=== PATIENT | male | born 1955 | race Caucasian/White ===

== ENCOUNTER 2016-08-20 12:08 | Inpatient (IN) | payer OTHER ==
--- NOTE | 2016-08-20 14:16 | HP ---
Admission [facility] Chief Complaint: I am tired of using and wasting my life. Allergies/Adverse Reactions: Allergies Allergy/AdvReac Type Severity Reaction Status Date / Time chlorpromazine HCl Allergy Severe Rash Verified 08/20/16 13:54 [From Thorazine] History of Present Illness: pt is a 60yr old male with a history of cocaine dependence seeking rehab for treatment. 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.) Respiratory: reports: No Symptoms reported Cardiac: reports: No Symptoms Reported GI: reports: No Symptoms Reported : reports: No Symptoms Reported Musculoskeletal: reports: No Symptoms Reported Integumentary: reports: No Symptoms Reported Neuro: reports: No Symptoms reported Endocrine: reports: No Symptoms Reported Hematology: reports: No Symptoms Reported Psychiatric: reports: Judgement Intact, Mood/Affect Appropiate, Orientated x3, Agitated, Anxious Other Systems: Reviewed and Negative Patient History - Patient Medical History Hx Anemia: No Hx Asthma: Yes Hx Chronic Obstructive Pulmonary Disease (COPD): Yes Hx Cancer: No Hx Cardiac Disorders: Yes (pacemaker and defibrillator placed 12/2015) Hx Congestive Heart Failure: No Hx Hypertension: Yes Hx Hypercholesterolemia: Yes Hx Pacemaker: Yes HX Cerebrovascular Accident: No Hx Seizures: No Hx Dementia: No Hx Diabetes: No Hx Gastrointestinal Disorders: No Hx Liver Disease: No Hx Genitourinary Disorders: No Hx Sexually Transmitted Disorders: No Hx Renal Disease (ESRD): No Hx Thyroid Disease: No Hx Human Immunodeficiency Virus (HIV): No (negative) Hx Hepatitis C: No (negative) Hx Depression: Yes Hx Suicide Attempt: No (denies any S/H ideation) Hx Bipolar Disorder: No Hx Schizophrenia: No - Patient Surgical History Hx Cardiac Surgery: Yes (2009 defibrillator then again a pacemaker & defib 12/25 ) Hx Abdominal Surgery: Yes (B/L abdominal hernia age 4) - PPD History Previous Implant?: Yes Documented Results: Negative w/o proof PPD to be Administered?: Yes - Reproductive History Patient is a Female of Child Bearing Age (11 -55 yrs old): No - Smoking Cessation Smoking history: Current every day smoker Have you smoked in the past 12 months: Yes Aproximately how many cigarettes per day: 7 Hx Chewing Tobacco Use: No Initiated information on smoking cessation: Yes 'Breaking Loose' booklet given: 08/20/16 - Substance & Tx. History Hx Alcohol Use: No Hx Substance Use: Yes Substance Use Type: Cocaine, Heroin Hx Substance Use Treatment: Yes (07/2016 [facility] [place]) - Substances Abused Cocaine Route: Inhalation Frequency: 1-2 times per week Amount used: $100-150 Age of first use: 20 Date of Last Use: 08/19/16 Heroin Route: Inhalation Frequency: 1-3 times last 30 days Amount used: 5 bags Age of first use: 23 Date of Last Use: 08/13/16 Family Disease History - Family Disease History Family Disease History: Heart Disease: Father, Mother Admission Physical Exam [facility] - Vital Signs Vital Signs: Vital Signs - 24 hr 08/20/16 12:46 Temperature 98 F Pulse Rate 106 H Respiratory 20 Rate Blood Pressure 105/73 - Physical General Appearance: Yes: Within Normal Limits, Moderate Distress HEENTM: Yes: Hearing Decreased (left ear hearing loss d/t [facility] Respiratory: Yes: Lungs Clear, Normal Breath Sounds, No Respiratory Distress Neck: Yes: No masses,lesions,Nodules Breast: Yes: Within Normal Limits Cardiology: Yes: Regular Rate, Irregularly Irregular, Other (pt has a pacemaker and defibrillator placement since 2009 and replaced 12/2016) Abdominal: Yes: Normal Bowel Sounds Genitourinary: Yes: Within Normal Limits Back: Yes: Normal Inspection Musculoskeletal: Yes: full range of Motion Extremities: Yes: Tremors Neurological: Yes: Fully Oriented, Alert, Normal Response Integumentary: Yes: Normal Color Lymphatic: Yes: Within Normal Limits - Diagnostic (1) Cocaine dependence Current Visit: Yes Status: Chronic Qualifiers: Qualified Code(s): F14.20 - Cocaine dependence, uncomplicated (2) Heroin use disorder, mild, abuse Current Visit: Yes Status: Chronic (3) Nicotine dependence Current Visit: Yes Status: Chronic Qualifiers: Qualified Code(s): F17.210 - Nicotine dependence, cigarettes, uncomplicated (4) Left ear hearing loss Current Visit: No Status: Chronic Qualifiers: Qualified Code(s): H91.92 - Unspecified hearing loss, left ear (5) COPD (chronic obstructive pulmonary disease) Current Visit: Yes Status: Acute (6) GERD (gastroesophageal reflux disease) Current Visit: Yes Status: Chronic Qualifiers: Qualified Code(s): K21.9 - Gastro-esophageal reflux disease without esophagitis (7) Hypertension Current Visit: Yes Status: Chronic Qualifiers: Qualified Code(s): I10 - Essential (primary) hypertension (8) Neuropathy Current Visit: Yes Status: Chronic (9) Atrial fibrillation Current Visit: Yes Status: Chronic Qualifiers: Qualified Code(s): I48.91 - Unspecified atrial fibrillation Comment: has an inplant (pacemaker and defibrillator) (10) Cardiomyopathy Current Visit: Yes Status: Chronic Qualifiers: Qualified Code(s): I42.9 - Cardiomyopathy, unspecified Cleared for Admission [facility] - Detox or Rehab [facility] Level of Care: Medically Managed Claeared for Rehab Admission: Yes S Breath Alcohol Content Breath Alcohol Content: 0 Urine Drug Screen - Results Drug Screen Negative: No Urine Drug Screen Results: NOELLE-Cocaine, TCA-Tricyclic Antidepress
[2016-08-20 14:20] VITALS: BMI 25.7
[2016-08-20] MEDS ORDERED: MAGNESIUM HYDROX 2400MG/30ML ORAL SUSPENSION 30 ML CUP PO PRN (14:37)
[2016-08-20] MEDS ORDERED: diphenhydrAMINE HCL 50 MG CAPSULE PO PRN (14:37)
[2016-08-20] MEDS ORDERED: LOPERAMIDE HCL 2 MG CAPSULE PO PRN (14:37)
[2016-08-20] MEDS ORDERED: MENTHOL/PHENOL 1 EACH UD MM PRN (14:37)
[2016-08-20] MEDS ORDERED: hydrOXYzine PAMOATE 50 MG CAPSULE (FP) PO PRN (14:37)
[2016-08-20] MEDS ORDERED: guaiFENesin/D-METHORPHAN HB 10 ML UNIT-DOSE CUPS PO PRN (14:37)
[2016-08-20] MEDS ORDERED: P-EPHED 60MG/TRIPROLIDI 2.5MG TABLET PO PRN (14:37)
[2016-08-20] MEDS ORDERED: MAGNESIUM CITRATE 300 ML BOTTLE PO PRN (14:37)
[2016-08-20] MEDS ORDERED: NICOTINE POLACRILEX 4 MG GUM BC PRN (14:37)
[2016-08-20] MEDS ORDERED: FUROSEMIDE 40 MG TABLET (FP) PO PRN (14:39)
[2016-08-20 16:43] LABS: MCH 27.5 pg (25.7-33.7); MCHC 31.7 g/dl (32.0-35.9); MEAN CELL VOLUME 86.8 fl (80-96); MEAN PLT VOLUME 8.5 fl (7.5-11.1); PLATELET COUNT 304 K/MM3 (134-434); RDW 20.5 % (11.9-15.9); WHITE BLOOD COUNT 9.5 K/mm3 (4.0-10.0)
[2016-08-20 16:45] LABS: ALBUMIN 4.2 g/dl (3.4-5.0); ANION GAP 10 (8-16); CALCIUM 9.7 mg/dL (8.5-10.1); CO2 27 mmol/L (21-32); GLUCOSE,RANDOM 84 mg/dL (74-106); SGOT/AST 21 U/L (15-37)
[2016-08-20 16:48] LABS: ALK PHOS 159 U/L (45-117); BILIRUBIN,TOTAL 0.6 mg/dL (0.2-1.0); CREATININE 1.8 mg/dL (0.7-1.3); SGPT/ALT 20 U/L (12-78); TOT PROT 8.5 g/dl (6.4-8.2)
[2016-08-20 17:05] LABS: INR 1.64 (0.82-1.09); PROTHROMBIN TIME (PATIENT) 18.2 SEC (9.98-11.88)
[2016-08-20] MEDS: WARFARIN NA 3 MG TABLET PO SCH (17:57)
[2016-08-20] MEDS: THIAMINE HCL 100 MG TABLET (FP) PO SCH (21:21)
[2016-08-20] MEDS: ACETAMINOPHEN 325 MG TABLET (FP) PO PRN (21:22)
[2016-08-20 22:40] LABS: URINE APPEARANCE CLEAR; URINE BLOOD NEGATIVE (NEGATIVE); URINE COLOR AMBER; URINE GLUCOSE (UA) NEGATIVE (NEGATIVE); URINE KETONE TRACE (NEGATIVE); URINE NITRITE NEGATIVE (NEGATIVE)
[2016-08-20 22:45] LABS: URINE LEUK ESTERASE TRACE (NEGATIVE); URINE PROTEIN 1+ (NEGATIVE)
[2016-08-20 22:49] LABS: GRANULAR CASTS 10 /lpf; URINE HYALINE CAST 15 /lpf; URINE MUCUS FEW; URINE RBC 8 /hpf (0-3); URINE WBC 1 /hpf (3-5)
[2016-08-21] MEDS: MAG HYDROX/AL HYDROX/SIMETH 30 ML UNIT-DOSE CUP PO PRN ×2 (06:34→14:07)
[2016-08-21] MEDS: FUROSEMIDE 40 MG TABLET (FP) PO SCH (09:46)
[2016-08-21] MEDS: BUDESONIDE/FORMETEROL FUMARATE 160/4.5 mcg INHALER IH SCH (09:46)
[2016-08-21] MEDS: PRENATAL VITAMINS W/ FOLIC ACID TABLET (FP) PO SCH (09:46)
[2016-08-21] MEDS: LISINOPRIL 20 MG TABLET (FP) PO SCH (09:46)
[2016-08-21] MEDS: PANTOPRAZOLE 40 MG TABLET (FP) PO SCH (09:46)
[2016-08-21] MEDS: NICOTINE 21 MG/24 HOURS TOPICAL PATCH TD SCH (09:47)
[2016-08-21] MEDS: METOPROLOL SUCCINATE 200 MG TAB.SR.24H PO SCH (10:07)
--- NOTE | 2016-08-21 10:21 | HP ---
Psychiatrist Admission - Data Date of interview: 08/21/16 Admission source: [facility] Identifying data: This is the first 5n inpatient rehabilitation admission for this 60 year old single male, father of 3, residing in shared apartment, unemployed supported on food stamps. Medical History: history of A-fib, has a defibrillater 12/25, acid reflux, HTN, arthritis of both knees and COPD, smokes cigarettes 7 a day. Psychiatric History: Patient reports has been depressed all his life, his depression worsened after of his 1,5 years ago. He reports 3 psychiatric hospitalizations , two suicidal attempts (tried to hang self and planned to shot self0. His most recent psychiaric hospitalization was last mothe at [facility] for 3 weeks due to severe depression and suicidal thoughts. He currently on Trazodone 150 mg po hs, Remeron 30 mg po hs, Seroquel 300 mg po hs and Wellbutrin XL 300 mg po daily. Physical/Sexual Abuse/Trauma History: Denies history of sexual, physial and verbal abuse. Vital Signs: Vital Signs - 24 hr 08/20/16 08/21/16 08/21/16 12:46 03:30 06:41 Temperature 98 F 98.6 F Pulse Rate 106 H 101 H Respiratory 20 18 18 Rate Blood Pressure 105/73 141/93 Allergies/Adverse Reactions: Allergies Allergy/AdvReac Type Severity Reaction Status Date / Time chlorpromazine HCl Allergy Severe Rash Verified 08/20/16 13:54 [From Thorazine] Date of last physical exam: 08/20/16 Concur with the findings of this exam: Yes - Substance Abuse/Tx History Hx Alcohol Use: No Hx Substance Use: Yes Substance Use Type: Cocaine, Heroin Hx Substance Use Treatment: Yes ([place], [facility]) - Admission Criteria Previous failed treatment: Yes Poor recovery environment: Yes Comorbidities: Yes Lacks judgement: Yes Mental Status Exam - Mental Status Exam Alert and Oriented to: Time, Place, Person Cognitive Function: Grossly Intact Patient Appearance: Well Groomed Mood: Hopeful Affect: Mood Congruent Patient Behavior: Appropriate, Cooperative Speech Pattern: Clear, Appropriate Voice Loudness: Normal Thought Process: Intact, Goal Oriented Thought Disorder: Not Present Hallucinations: Denies Suicidal Ideation: Denies Homicidal Ideation: Denies Insight/Judgement: Fair Sleep: Fair Psychiatric Findings - Problem List (Adin 1, 2,3) (1) COPD (chronic obstructive pulmonary disease) Current Visit: Yes Status: Acute (2) Atrial fibrillation Current Visit: Yes Status: Chronic Qualifiers: Atrial fibrillation type: unspecified Qualified Code(s): I48.91 - Unspecified atrial fibrillation Comment: has an inplant (pacemaker and defibrillator) (3) Cardiomyopathy Current Visit: Yes Status: Chronic Qualifiers: Cardiomyopathy type: unspecified Qualified Code(s): I42.9 - Cardiomyopathy, unspecified (4) Cocaine dependence Current Visit: Yes Status: Chronic Qualifiers: Substance use status: uncomplicated Qualified Code(s): F14.20 - Cocaine dependence, uncomplicated (5) GERD (gastroesophageal reflux disease) Current Visit: Yes Status: Chronic Qualifiers: Esophagitis presence: without esophagitis Qualified Code(s): K21.9 - Gastro-esophageal reflux disease without esophagitis (6) Heroin use disorder, mild, abuse Current Visit: Yes Status: Chronic (7) Hypertension Current Visit: Yes Status: Chronic Qualifiers: Hypertension type: essential hypertension Qualified Code(s): I10 - Essential (primary) hypertension (8) Neuropathy Current Visit: Yes Status: Chronic (9) Nicotine dependence Current Visit: Yes Status: Chronic Qualifiers: Nicotine product type: cigarettes Substance use status: uncomplicated Qualified Code(s): F17.210 - Nicotine dependence, cigarettes, uncomplicated (10) MDD (major depressive disorder), recurrent episode, moderate Current Visit: Yes Status: Acute (11) Bereavement Current Visit: Yes Status: Acute - Initial Treatment Plan Initial Treatment Plan: will continue his current medications, monitor progress as needed.
[2016-08-21] MEDS: GABAPENTIN 300 MG CAPSULE (FP) PO SCH ×3 (14:06→21:42)
[2016-08-21] MEDS: SIMETHICONE 80 MG TAB.CHEW (FP) PO PRN ×2 (15:32→23:48)
[2016-08-21] MEDS: WARFARIN NA 3 MG TABLET PO SCH (17:36)
[2016-08-21] MEDS: traZODone HCL 50 MG TABLET (FP) PO SCH (21:42)
[2016-08-21] MEDS: MIRTAZAPINE 30 MG TABLET (FP) PO SCH (21:42)
[2016-08-21] MEDS: DIGOXIN 0.125 MG TABLET (FP) PO SCH (21:42)
[2016-08-21] MEDS: QUEtiapine FUMARATE 300 MG TABLET PO SCH (21:43)
[2016-08-21] MEDS: THIAMINE HCL 100 MG TABLET (FP) PO SCH (21:44)
[2016-08-21] MEDS: ACETAMINOPHEN 325 MG TABLET (FP) PO PRN (21:49)
[2016-08-22] MEDS: METOPROLOL SUCCINATE 200 MG TAB.SR.24H PO SCH (10:57)
[2016-08-22] MEDS: PRENATAL VITAMINS W/ FOLIC ACID TABLET (FP) PO SCH (10:57)
[2016-08-22] MEDS: FUROSEMIDE 40 MG TABLET (FP) PO SCH (10:58)
[2016-08-22] MEDS: GABAPENTIN 300 MG CAPSULE (FP) PO SCH ×4 (10:58→21:21)
[2016-08-22] MEDS: PANTOPRAZOLE 40 MG TABLET (FP) PO SCH (10:58)
[2016-08-22] MEDS: LISINOPRIL 20 MG TABLET (FP) PO SCH (10:58)
[2016-08-22] MEDS: BUDESONIDE/FORMETEROL FUMARATE 160/4.5 mcg INHALER IH SCH (10:59)
[2016-08-22] MEDS: NICOTINE 21 MG/24 HOURS TOPICAL PATCH TD SCH (10:59)
[2016-08-22] MEDS: WARFARIN NA 3 MG TABLET PO SCH (18:19)
[2016-08-22] MEDS: SIMETHICONE 80 MG TAB.CHEW (FP) PO PRN (18:22)
[2016-08-22] MEDS: traZODone HCL 50 MG TABLET (FP) PO SCH (21:21)
[2016-08-22] MEDS: MIRTAZAPINE 30 MG TABLET (FP) PO SCH (21:21)
[2016-08-22] MEDS: QUEtiapine FUMARATE 300 MG TABLET PO SCH (21:21)
[2016-08-22] MEDS: DIGOXIN 0.125 MG TABLET (FP) PO SCH (21:21)
[2016-08-22] MEDS: THIAMINE HCL 100 MG TABLET (FP) PO SCH (21:21)
[2016-08-22] MEDS: ACETAMINOPHEN 325 MG TABLET (FP) PO PRN (21:22)
[2016-08-23] MEDS: LISINOPRIL 20 MG TABLET (FP) PO SCH (09:38)
[2016-08-23] MEDS: GABAPENTIN 300 MG CAPSULE (FP) PO SCH ×4 (09:38→21:09)
[2016-08-23] MEDS: FUROSEMIDE 40 MG TABLET (FP) PO SCH (09:38)
[2016-08-23] MEDS: METOPROLOL SUCCINATE 200 MG TAB.SR.24H PO SCH (09:38)
[2016-08-23] MEDS: BUDESONIDE/FORMETEROL FUMARATE 160/4.5 mcg INHALER IH SCH (09:38)
[2016-08-23] MEDS: PRENATAL VITAMINS W/ FOLIC ACID TABLET (FP) PO SCH (09:38)
[2016-08-23] MEDS: PANTOPRAZOLE 40 MG TABLET (FP) PO SCH (09:39)
[2016-08-23] MEDS: NICOTINE 21 MG/24 HOURS TOPICAL PATCH TD SCH (09:40)
--- NOTE | 2016-08-23 13:28 | EKG ---
Test Reason : Blood Pressure : / mmHG Vent. Rate : 091 BPM Atrial Rate : 136 BPM P-R Int : 000 ms QRS Dur : 096 ms QT Int : 386 ms P-R-T Axes : 000 049 -21 degrees QTc Int : 474 ms ATRIAL FIBRILLATION NONSPECIFIC ST ABNORMALITY ABNORMAL QRS-T ANGLE, CONSIDER PRIMARY T WAVE ABNORMALITY ABNORMAL ECG WHEN COMPARED WITH ECG OF 15-NOV-2009 15:02, ATRIAL FIBRILLATION HAS REPLACED SINUS RHYTHM VENT. RATE HAS DECREASED BY 66 BPM CRITERIA FOR SEPTAL INFARCT ARE NO LONGER PRESENT NONSPECIFIC T WAVE ABNORMALITY, IMPROVED IN LATERAL LEADS Confirmed by ADELE RIBEIRO MD ([id number]) on 08/23/2016 1:28:32 PM Referred By: Confirmed By:ADELE RIBEIRO MD
[2016-08-23] MEDS: SIMETHICONE 80 MG TAB.CHEW (FP) PO PRN (13:48)
[2016-08-23] MEDS: WARFARIN NA 3 MG TABLET PO SCH (17:53)
[2016-08-23] MEDS: DIGOXIN 0.125 MG TABLET (FP) PO SCH (21:09)
[2016-08-23] MEDS: traZODone HCL 50 MG TABLET (FP) PO SCH (21:09)
[2016-08-23] MEDS: MIRTAZAPINE 30 MG TABLET (FP) PO SCH (21:09)
[2016-08-23] MEDS: QUEtiapine FUMARATE 300 MG TABLET PO SCH (21:10)
[2016-08-23] MEDS: THIAMINE HCL 100 MG TABLET (FP) PO SCH (21:10)
[2016-08-23] MEDS: ACETAMINOPHEN 325 MG TABLET (FP) PO PRN (21:11)
[2016-08-24] MEDS ORDERED: PT OWN MED DRAWER 7, Y5N ONE (08:29)
[2016-08-24] MEDS: GABAPENTIN 300 MG CAPSULE (FP) PO SCH ×4 (09:34→21:27)
[2016-08-24] MEDS: METOPROLOL SUCCINATE 200 MG TAB.SR.24H PO SCH (09:34)
[2016-08-24] MEDS: FUROSEMIDE 40 MG TABLET (FP) PO SCH (09:35)
[2016-08-24] MEDS: LISINOPRIL 20 MG TABLET (FP) PO SCH (09:35)
[2016-08-24] MEDS: PANTOPRAZOLE 40 MG TABLET (FP) PO SCH (09:35)
[2016-08-24] MEDS: PRENATAL VITAMINS W/ FOLIC ACID TABLET (FP) PO SCH (09:37)
[2016-08-24] MEDS: NICOTINE 21 MG/24 HOURS TOPICAL PATCH TD SCH (09:37)
[2016-08-24] MEDS: BUDESONIDE/FORMETEROL FUMARATE 160/4.5 mcg INHALER IH SCH (09:37)
--- NOTE | 2016-08-24 09:53 | PN ---
S Progress Note Note: patient did not want lasix every day ,would like to take lasix 40 mgs po twice a week,on wed and wed, vital sign monitoring
[2016-08-24] MEDS: WARFARIN NA 3 MG TABLET PO SCH (18:07)
[2016-08-24] MEDS: QUEtiapine FUMARATE 300 MG TABLET PO SCH (21:24)
[2016-08-24] MEDS: THIAMINE HCL 100 MG TABLET (FP) PO SCH (21:24)
[2016-08-24] MEDS: MIRTAZAPINE 30 MG TABLET (FP) PO SCH (21:25)
[2016-08-24] MEDS: traZODone HCL 50 MG TABLET (FP) PO SCH (21:25)
[2016-08-24] MEDS: DIGOXIN 0.125 MG TABLET (FP) PO SCH (21:27)
[2016-08-24] MEDS: ACETAMINOPHEN 325 MG TABLET (FP) PO PRN (21:28)
[2016-08-25] MEDS: NICOTINE 21 MG/24 HOURS TOPICAL PATCH TD SCH (09:29)
[2016-08-25] MEDS: PRENATAL VITAMINS W/ FOLIC ACID TABLET (FP) PO SCH (09:30)
[2016-08-25] MEDS: GABAPENTIN 300 MG CAPSULE (FP) PO SCH ×4 (09:30→21:15)
[2016-08-25] MEDS: LISINOPRIL 20 MG TABLET (FP) PO SCH (09:30)
[2016-08-25] MEDS: PANTOPRAZOLE 40 MG TABLET (FP) PO SCH (09:30)
[2016-08-25] MEDS: METOPROLOL SUCCINATE 200 MG TAB.SR.24H PO SCH (09:30)
[2016-08-25] MEDS: BUDESONIDE/FORMETEROL FUMARATE 160/4.5 mcg INHALER IH SCH (09:30)
[2016-08-25 16:31] LABS: INR 1.52 (0.82-1.09); PROTHROMBIN TIME (PATIENT) 16.9 SEC (9.98-11.88)
[2016-08-25] MEDS: WARFARIN NA 3 MG TABLET PO SCH (18:19)
[2016-08-25] MEDS: traZODone HCL 50 MG TABLET (FP) PO SCH (21:14)
[2016-08-25] MEDS: MIRTAZAPINE 30 MG TABLET (FP) PO SCH (21:14)
[2016-08-25] MEDS: QUEtiapine FUMARATE 300 MG TABLET PO SCH (21:15)
[2016-08-25] MEDS: THIAMINE HCL 100 MG TABLET (FP) PO SCH (21:15)
[2016-08-25] MEDS: DIGOXIN 0.125 MG TABLET (FP) PO SCH (21:15)
[2016-08-25] MEDS: IBUPROFEN 400 MG TABLET (FP) PO PRN (21:16)
[2016-08-26] MEDS: GABAPENTIN 300 MG CAPSULE (FP) PO SCH ×4 (09:41→22:08)
[2016-08-26] MEDS: PANTOPRAZOLE 40 MG TABLET (FP) PO SCH (09:41)
[2016-08-26] MEDS: PRENATAL VITAMINS W/ FOLIC ACID TABLET (FP) PO SCH (09:41)
[2016-08-26] MEDS: METOPROLOL SUCCINATE 200 MG TAB.SR.24H PO SCH (09:41)
[2016-08-26] MEDS: LISINOPRIL 20 MG TABLET (FP) PO SCH (09:41)
[2016-08-26] MEDS: BUDESONIDE/FORMETEROL FUMARATE 160/4.5 mcg INHALER IH SCH (09:41)
[2016-08-26] MEDS: FUROSEMIDE 40 MG TABLET (FP) PO SCH (09:43)
[2016-08-26] MEDS: NICOTINE 21 MG/24 HOURS TOPICAL PATCH TD SCH (09:43)
[2016-08-26] MEDS ORDERED: PT OWN MED DRAWER 7, Y5N ONE (16:15)
[2016-08-26] MEDS: WARFARIN NA 5 MG TABLET (UD) PO SCH (17:12)
[2016-08-26] MEDS: DIGOXIN 0.125 MG TABLET (FP) PO SCH (22:06)
[2016-08-26] MEDS: THIAMINE HCL 100 MG TABLET (FP) PO SCH (22:06)
[2016-08-26] MEDS: QUEtiapine FUMARATE 300 MG TABLET PO SCH (22:07)
[2016-08-26] MEDS: traZODone HCL 50 MG TABLET (FP) PO SCH (22:07)
[2016-08-26] MEDS: MIRTAZAPINE 30 MG TABLET (FP) PO SCH (22:08)
[2016-08-26] MEDS: IBUPROFEN 400 MG TABLET (FP) PO PRN (22:10)
[2016-08-27] MEDS: BUDESONIDE/FORMETEROL FUMARATE 160/4.5 mcg INHALER IH SCH (09:37)
[2016-08-27] MEDS: GABAPENTIN 300 MG CAPSULE (FP) PO SCH ×4 (09:37→21:14)
[2016-08-27] MEDS: PRENATAL VITAMINS W/ FOLIC ACID TABLET (FP) PO SCH (09:37)
[2016-08-27] MEDS: LISINOPRIL 20 MG TABLET (FP) PO SCH (09:37)
[2016-08-27] MEDS: PANTOPRAZOLE 40 MG TABLET (FP) PO SCH (09:37)
[2016-08-27] MEDS: METOPROLOL SUCCINATE 200 MG TAB.SR.24H PO SCH (09:37)
[2016-08-27] MEDS: NICOTINE 21 MG/24 HOURS TOPICAL PATCH TD SCH (09:38)
--- NOTE | 2016-08-27 13:19 | PN ---
[facility] Progress Note Note: Laboratory Last Values WBC 9.5 K/mm3 (4.0-10.0) 08/20/16 15:00 RBC 5.29 M/mm3 (4.00-5.60) 08/20/16 15:00 Hgb 14.5 GM/dL (11.7-16.9) 08/20/16 15:00 Hct 45.9 % (35.4-49) 08/20/16 15:00 MCV 86.8 fl (80-96) 08/20/16 15:00 MCH 27.5 pg (25.7-33.7) D 08/20/16 15:00 MCHC 31.7 g/dl (32.0-35.9) L 08/20/16 15:00 RDW 20.5 % (11.9-15.9) H D 08/20/16 15:00 Plt Count 304 K/MM3 (134-434) 08/20/16 15:00 MPV 8.5 fl (7.5-11.1) 08/20/16 15:00 INR 1.52 (0.82-1.09) H 08/25/16 10:15 Sodium 142 mmol/L (136-145) 08/20/16 15:00 Potassium 4.2 mmol/L (3.5-5.1) 08/20/16 15:00 Chloride 105 mmol/L (98-107) 08/20/16 15:00 Carbon Dioxide 27 mmol/L (21-32) 08/20/16 15:00 Anion Gap 10 (8-16) 08/20/16 15:00 BUN 29 mg/dL (7-18) H D 08/20/16 15:00 Creatinine 1.8 mg/dL (0.7-1.3) H D 08/20/16 15:00 Creat Clearance w eGFR 38.95 (>60) 08/20/16 15:00 Random Glucose 84 mg/dL (74-106) 08/20/16 15:00 Calcium 9.7 mg/dL (8.5-10.1) 08/20/16 15:00 Total Bilirubin 0.6 mg/dL (0.2-1.0) D 08/20/16 15:00 AST 21 U/L (15-37) D 08/20/16 15:00 ALT 20 U/L (12-78) D 08/20/16 15:00 Alkaline Phosphatase 159 U/L (45-117) H 08/20/16 15:00 Total Protein 8.5 g/dl (6.4-8.2) H 08/20/16 15:00 Albumin 4.2 g/dl (3.4-5.0) 08/20/16 15:00 Urine Color Maryjane 08/20/16 22:00 Urine Appearance Clear 08/20/16 22:00 Urine pH 5.0 (5.0-8.0) 08/20/16 22:00 Ur Specific Denhoff >= 1.030 (1.005-1.025) H 08/20/16 22:00 Urine Protein 1+ (NEGATIVE) H 08/20/16 22:00 Urine Glucose (UA) Negative (NEGATIVE) 08/20/16 22:00 Urine Ketones Trace (NEGATIVE) H 08/20/16 22:00 Urine Blood Negative (NEGATIVE) 08/20/16 22:00 Urine Nitrite Negative (NEGATIVE) 08/20/16 22:00 Urine Bilirubin 2.0 (NEGATIVE) 08/20/16 22:00 Urine Urobilinogen 2.0 mg/dL (0.2-1.0) 08/20/16 22:00 Ur Leukocyte Esterase Trace (NEGATIVE) H 08/20/16 22:00 Urine RBC 8 /hpf (0-3) 08/20/16 22:00 Urine WBC 1 /hpf (3-5) 08/20/16 22:00 Ur Epithelial Cells Rare /hpf (FEW) 08/20/16 22:00 Hyaline Casts 15 /lpf 08/20/16 22:00 Granular Casts 10 /lpf 08/20/16 22:00 Urine Mucus Few 08/20/16 22:00 Digoxin 0.4828 ng/ml (0.8-2.0) L 08/27/16 06:30 RPR Titer Nonreactive (NONREACTIVE) 08/20/16 15:00 on coumadin 5 mgs po daily since yesterday to repeat inr in am digoxin 0.4828 continue rehab close monitoring repeat dig level on wed08/31/16
[2016-08-27] MEDS: WARFARIN NA 5 MG TABLET (UD) PO SCH (17:35)
[2016-08-27] MEDS: ACETAMINOPHEN 325 MG TABLET (FP) PO PRN (21:12)
[2016-08-27] MEDS: traZODone HCL 50 MG TABLET (FP) PO SCH (21:13)
[2016-08-27] MEDS: THIAMINE HCL 100 MG TABLET (FP) PO SCH (21:14)
[2016-08-27] MEDS: DIGOXIN 0.125 MG TABLET (FP) PO SCH (21:14)
[2016-08-27] MEDS: QUEtiapine FUMARATE 300 MG TABLET PO SCH (21:14)
[2016-08-27] MEDS: MIRTAZAPINE 30 MG TABLET (FP) PO SCH (21:14)
[2016-08-28] MEDS: BUDESONIDE/FORMETEROL FUMARATE 160/4.5 mcg INHALER IH SCH (09:49)
[2016-08-28] MEDS: NICOTINE 21 MG/24 HOURS TOPICAL PATCH TD SCH (09:49)
[2016-08-28] MEDS: PANTOPRAZOLE 40 MG TABLET (FP) PO SCH (09:50)
[2016-08-28] MEDS: LISINOPRIL 20 MG TABLET (FP) PO SCH (09:50)
[2016-08-28] MEDS: PRENATAL VITAMINS W/ FOLIC ACID TABLET (FP) PO SCH (09:50)
[2016-08-28] MEDS: GABAPENTIN 300 MG CAPSULE (FP) PO SCH ×4 (09:50→21:29)
[2016-08-28] MEDS: METOPROLOL SUCCINATE 200 MG TAB.SR.24H PO SCH (09:51)
[2016-08-28 10:27] LABS: INR 1.79 (0.82-1.09); PROTHROMBIN TIME (PATIENT) 19.9 SEC (9.98-11.88)
[2016-08-28] MEDS: WARFARIN NA 3 MG TABLET PO SCH (17:53)
[2016-08-28] MEDS: QUEtiapine FUMARATE 300 MG TABLET PO SCH (21:29)
[2016-08-28] MEDS: THIAMINE HCL 100 MG TABLET (FP) PO SCH (21:29)
[2016-08-28] MEDS: DIGOXIN 0.125 MG TABLET (FP) PO SCH (21:29)
[2016-08-28] MEDS: traZODone HCL 50 MG TABLET (FP) PO SCH (21:29)
[2016-08-28] MEDS: MIRTAZAPINE 30 MG TABLET (FP) PO SCH (21:30)
[2016-08-28] MEDS: ACETAMINOPHEN 325 MG TABLET (FP) PO PRN (21:31)
[2016-08-29] MEDS: GABAPENTIN 300 MG CAPSULE (FP) PO SCH ×4 (09:45→21:09)
[2016-08-29] MEDS: PANTOPRAZOLE 40 MG TABLET (FP) PO SCH (09:45)
[2016-08-29] MEDS: METOPROLOL SUCCINATE 200 MG TAB.SR.24H PO SCH (09:45)
[2016-08-29] MEDS: LISINOPRIL 20 MG TABLET (FP) PO SCH (09:45)
[2016-08-29] MEDS: BUDESONIDE/FORMETEROL FUMARATE 160/4.5 mcg INHALER IH SCH (09:45)
[2016-08-29] MEDS: NICOTINE 21 MG/24 HOURS TOPICAL PATCH TD SCH (09:46)
[2016-08-29] MEDS: PRENATAL VITAMINS W/ FOLIC ACID TABLET (FP) PO SCH (09:46)
[2016-08-29 11:13] LABS: INR 2.25 (0.82-1.09); PROTHROMBIN TIME (PATIENT) 25.2 SEC (9.98-11.88)
[2016-08-29] MEDS: WARFARIN NA 3 MG TABLET PO SCH (17:31)
[2016-08-29] MEDS: MIRTAZAPINE 30 MG TABLET (FP) PO SCH (21:09)
[2016-08-29] MEDS: traZODone HCL 50 MG TABLET (FP) PO SCH (21:09)
[2016-08-29] MEDS: QUEtiapine FUMARATE 300 MG TABLET PO SCH (21:09)
[2016-08-29] MEDS: DIGOXIN 0.125 MG TABLET (FP) PO SCH (21:09)
[2016-08-29] MEDS: THIAMINE HCL 100 MG TABLET (FP) PO SCH (21:09)
[2016-08-29] MEDS: ACETAMINOPHEN 325 MG TABLET (FP) PO PRN (21:10)
[2016-08-30] MEDS: BUDESONIDE/FORMETEROL FUMARATE 160/4.5 mcg INHALER IH SCH (09:44)
[2016-08-30] MEDS: METOPROLOL SUCCINATE 200 MG TAB.SR.24H PO SCH (09:44)
[2016-08-30] MEDS: LISINOPRIL 20 MG TABLET (FP) PO SCH (09:45)
[2016-08-30] MEDS: FUROSEMIDE 40 MG TABLET (FP) PO SCH (09:45)
[2016-08-30] MEDS: NICOTINE 21 MG/24 HOURS TOPICAL PATCH TD SCH (09:45)
[2016-08-30] MEDS: PRENATAL VITAMINS W/ FOLIC ACID TABLET (FP) PO SCH (09:45)
[2016-08-30] MEDS: PANTOPRAZOLE 40 MG TABLET (FP) PO SCH (09:45)
[2016-08-30] MEDS: GABAPENTIN 300 MG CAPSULE (FP) PO SCH ×4 (09:45→21:12)
[2016-08-30] MEDS: WARFARIN NA 3 MG TABLET PO SCH (17:04)
[2016-08-30] MEDS: MIRTAZAPINE 30 MG TABLET (FP) PO SCH (21:12)
[2016-08-30] MEDS: THIAMINE HCL 100 MG TABLET (FP) PO SCH (21:12)
[2016-08-30] MEDS: DIGOXIN 0.125 MG TABLET (FP) PO SCH (21:12)
[2016-08-30] MEDS: QUEtiapine FUMARATE 300 MG TABLET PO SCH (21:12)
[2016-08-30] MEDS: traZODone HCL 50 MG TABLET (FP) PO SCH (21:12)
[2016-08-30] MEDS: ACETAMINOPHEN 325 MG TABLET (FP) PO PRN (21:13)
[2016-08-31] MEDS: METOPROLOL SUCCINATE 200 MG TAB.SR.24H PO SCH (09:42)
[2016-08-31] MEDS: NICOTINE 21 MG/24 HOURS TOPICAL PATCH TD SCH (09:42)
[2016-08-31] MEDS: BUDESONIDE/FORMETEROL FUMARATE 160/4.5 mcg INHALER IH SCH (09:42)
[2016-08-31] MEDS: LISINOPRIL 20 MG TABLET (FP) PO SCH (09:43)
[2016-08-31] MEDS: GABAPENTIN 300 MG CAPSULE (FP) PO SCH ×4 (09:43→21:08)
[2016-08-31] MEDS: PANTOPRAZOLE 40 MG TABLET (FP) PO SCH (09:43)
[2016-08-31] MEDS: PRENATAL VITAMINS W/ FOLIC ACID TABLET (FP) PO SCH (10:52)
--- NOTE | 2016-08-31 11:08 | PN ---
[facility] Progress Note Note: dig level is 0.55 .on coumadin 6 mgs po daily,inr is 2.25 on 08/29/16 patient did not want digoxin to be adjusted at this time
[2016-08-31] MEDS: WARFARIN NA 3 MG TABLET PO SCH (17:13)
[2016-08-31] MEDS: DIGOXIN 0.125 MG TABLET (FP) PO SCH (21:08)
[2016-08-31] MEDS: THIAMINE HCL 100 MG TABLET (FP) PO SCH (21:08)
[2016-08-31] MEDS: MIRTAZAPINE 30 MG TABLET (FP) PO SCH (21:08)
[2016-08-31] MEDS: traZODone HCL 50 MG TABLET (FP) PO SCH (21:08)
[2016-08-31] MEDS: QUEtiapine FUMARATE 300 MG TABLET PO SCH (21:08)
[2016-08-31] MEDS: ACETAMINOPHEN 325 MG TABLET (FP) PO PRN (21:09)
[2016-09-01 06:57] VITALS: TEMP 97.3
[2016-09-01] MEDS: NICOTINE 21 MG/24 HOURS TOPICAL PATCH TD SCH (09:48)
[2016-09-01] MEDS: PANTOPRAZOLE 40 MG TABLET (FP) PO SCH (09:48)
[2016-09-01] MEDS: LISINOPRIL 20 MG TABLET (FP) PO SCH (09:48)
[2016-09-01] MEDS: GABAPENTIN 300 MG CAPSULE (FP) PO SCH ×4 (09:48→21:10)
[2016-09-01] MEDS: METOPROLOL SUCCINATE 200 MG TAB.SR.24H PO SCH (09:48)
[2016-09-01] MEDS: PRENATAL VITAMINS W/ FOLIC ACID TABLET (FP) PO SCH (09:49)
[2016-09-01] MEDS: BUDESONIDE/FORMETEROL FUMARATE 160/4.5 mcg INHALER IH SCH (10:54)
[2016-09-01 11:08] LABS: INR 3.2 (0.82-1.09)
--- NOTE | 2016-09-01 11:48 | PN ---
S Progress Note Note: Abnormal Lab Results 09/01/16 06:30 INR 3.20 H D will give coumadin 4 mgs po daily repeat inr in am
[2016-09-01] MEDS ORDERED: WARFARIN NA 2 MG TABLET (UD) PO SCH (18:00)
[2016-09-01 20:55] VITALS: BP 164/99
[2016-09-01] MEDS: THIAMINE HCL 100 MG TABLET (FP) PO SCH (21:10)
[2016-09-01] MEDS: ACETAMINOPHEN 325 MG TABLET (FP) PO PRN (21:10)
[2016-09-01] MEDS: traZODone HCL 50 MG TABLET (FP) PO SCH (21:10)
[2016-09-01] MEDS: QUEtiapine FUMARATE 300 MG TABLET PO SCH (21:10)
[2016-09-01] MEDS: MIRTAZAPINE 30 MG TABLET (FP) PO SCH (21:10)
[2016-09-01] MEDS: DIGOXIN 0.125 MG TABLET (FP) PO SCH (21:10)
[2016-09-01 21:12] VITALS: PULSE 85
[2016-09-02] MEDS: PANTOPRAZOLE 40 MG TABLET (FP) PO SCH (09:36)
[2016-09-02] MEDS: METOPROLOL SUCCINATE 200 MG TAB.SR.24H PO SCH (09:36)
[2016-09-02] MEDS: BUDESONIDE/FORMETEROL FUMARATE 160/4.5 mcg INHALER IH SCH (09:36)
[2016-09-02] MEDS: LISINOPRIL 20 MG TABLET (FP) PO SCH (09:36)
[2016-09-02] MEDS: GABAPENTIN 300 MG CAPSULE (FP) PO SCH (09:36)
[2016-09-02] MEDS: FUROSEMIDE 40 MG TABLET (FP) PO SCH (09:37)
[2016-09-02] MEDS: PRENATAL VITAMINS W/ FOLIC ACID TABLET (FP) PO SCH (09:38)
[2016-09-02] MEDS: NICOTINE 21 MG/24 HOURS TOPICAL PATCH TD SCH (09:38)
[2016-09-02 10:40] LABS: INR 3.58 (0.82-1.09); PROTHROMBIN TIME (PATIENT) 40.4 SEC (9.98-11.88)
--- NOTE | 2016-09-02 11:01 | PN ---
Psychiatric Progress Note Vital Signs: Vital Signs Period Temp Pulse Resp BP Sys/Boyd Pulse Ox Last 24 Hr 85-85 18-18 164-164/99-99 Date of Session: 09/02/16 Chief Complaint:: discharge visit HPI: Patient has addressed cocaine, opioid, nicotine dependence comorbid MDD and Bereavement. ROS: history of A-fib, has a defibrillater 12/25, acid reflux, HTN, arthritis of both knees and COPD medically managed. Current Medications: Active Medications Generic Name Dose Route Start Last Admin Trade Name Freq PRN Reason Stop Dose Admin Acetaminophen 650 mg 08/20/16 14:37 09/01/16 21:10 Tylenol - PO 650 mg Q4H PRN Administration PAIN Al Hydroxide/Mg Hydroxide 30 ml 08/20/16 14:37 08/21/16 14:07 Mylanta Oral Suspension - PO 30 ml Q6H PRN Administration DYSPEPSIA Budesonide/Formoterol Fumarate 1 puff 08/21/16 10:00 09/02/16 09:36 Symbicort 160/4.5mcg - IH 1 puff DAILY HORTENSIA Administration Bupropion HCl 300 mg 08/22/16 10:00 09/02/16 09:36 Wellbutrin Xl - PO 300 mg DAILY HORTENSIA Administration Digoxin 0.125 mg 08/21/16 22:00 09/01/16 21:10 Lanoxin - PO 0.125 mg HS HORTENSIA Administration Diltiazem HCl 120 mg 08/21/16 22:00 09/01/16 21:10 Cardizem Cd - PO 120 mg HS HORTENSIA Administration Diphenhydramine HCl 50 mg 08/20/16 14:37 08/20/16 22:43 Benadryl - PO 50 mg HSMR1 PRN Administration INSOMNIA Eucalyptus/Menthol/Phenol/Sorbitol 1 each 08/20/16 14:37 Cepastat Lozenge - MM Q4H PRN SORE THROAT Furosemide 40 mg 08/26/16 10:00 09/02/16 09:37 Lasix - PO 40 mg SUWE@1000 HORTENSIA Administration Gabapentin 300 mg 08/21/16 14:00 09/02/16 09:36 Neurontin - PO 300 mg QID HORTENSIA Administration Guaifenesin 10 ml 08/20/16 14:37 Robitussin Dm - PO Q6H PRN COUGH Hydroxyzine Pamoate 50 mg 08/20/16 14:37 Vistaril - PO Q4H PRN AGITATION Ibuprofen 400 mg 08/20/16 14:37 08/26/16 22:10 Motrin - PO 400 mg Q6H PRN Administration SEVERE PAIN Lisinopril 20 mg 08/21/16 10:00 09/02/16 09:36 Prinivil PO 20 mg DAILY HORTENSIA Administration Loperamide HCl 4 mg 08/20/16 14:37 08/21/16 14:06 Imodium - PO 4 mg Q6H PRN Administration DIARRHEA Magnesium Citrate 300 ml 08/20/16 14:37 Citroma - PO Q48H PRN CONSTIPATION Magnesium Hydroxide 30 ml 08/20/16 14:37 Milk Of Magnesia - PO DAILY PRN CONSTIPATION Metoprolol Succinate 200 mg 08/21/16 10:00 09/02/16 09:36 Toprol Xl - PO 200 mg DAILY HORTENSIA Administration Mirtazapine 30 mg 08/21/16 22:00 09/01/16 21:10 Remeron - PO 30 mg HS HORTENSAI Administration Nicotine 21 mg 08/21/16 10:00 09/02/16 09:38 Nicoderm Patch - TD 21 mg DAILY HORTENSIA Administration Nicotine Polacrilex 4 mg 08/20/16 14:37 Nicorette Gum - BC Q2H PRN NICOTINE REPLACEMENT RX Pantoprazole Sodium 40 mg 08/21/16 10:00 09/02/16 09:36 Protonix - PO 40 mg DAILY HORTENSIA Administration Multivit/Folic Acid/Iron 1 tab 08/21/16 10:00 09/02/16 09:38 Vitamins (Sjr) - PO Not Given DAILY HORTENSIA Pseudoephedrine/Triprolidine 1 combo 08/20/16 14:37 Actifed - PO TID PRN NASAL CONGESTION Quetiapine Fumarate 300 mg 08/21/16 22:00 09/01/16 21:10 Seroquel - PO 300 mg HS HORTENSIA Administration Simethicone 80 mg 08/21/16 14:52 08/23/16 13:48 Mylicon - PO 80 mg QID PRN Administration GAS Thiamine HCl 100 mg 08/20/16 22:00 09/01/16 21:10 Vitamin B1 - PO 100 mg HS HORTENSIA Administration Trazodone HCl 150 mg 08/21/16 22:00 09/01/16 21:10 Desyrel - PO 150 mg HS HORTENSIA Administration Warfarin Sodium 4 mg 09/01/16 18:00 09/01/16 17:15 Coumadin - PO 4 mg DAILY@1800 HORTENSIA Administration Current Side Effect: No Lab tests ordered: No Lab tests reviewed: Yes Provider note:: Patient has completed today his treatment and met hisgoals, will continue to address his issues at [facility] and f/u with a psychiatrist at [facility]. Patient gained insight into his addiction and motivated to continue maintain abstinence. PAtient reports he feels much better, less depressed and more hopefull. Scripts provided for 30 days, stable for discharge today. Patient was encouraged to use altervative ways to cope with life stressors. Total face to face time:: 35 Mental Status Exam - Mental Status Exam Alert and Oriented to: Time, Place, Person Cognitive Function: Good Patient Appearance: Well Groomed Mood: Hopeful Affect: Appropriate, Mood Congruent Patient Behavior: Appropriate, Cooperative Speech Pattern: Clear, Appropriate Voice Loudness: Normal Thought Process: Intact, Goal Oriented Thought Disorder: Not Present Hallucinations: Denies Suicidal Ideation: Denies Homicidal Ideation: Denies Insight/Judgement: Fair Sleep: Fair Muscle strength/Tone: Normal Gait/Station: Normal Psychiatric Treatment Plan - Problem List (2) Atrial fibrillation Qualifiers: Atrial fibrillation type: unspecified Qualified Code(s): I48.91 - Unspecified atrial fibrillation Comment: has an inplant (pacemaker and defibrillator) (3) Cardiomyopathy Qualifiers: Cardiomyopathy type: unspecified Qualified Code(s): I42.9 - Cardiomyopathy, unspecified (4) Cocaine dependence Qualifiers: Substance use status: uncomplicated Qualified Code(s): F14.20 - Cocaine dependence, uncomplicated (5) GERD (gastroesophageal reflux disease) Qualifiers: Esophagitis presence: without esophagitis Qualified Code(s): K21.9 - Gastro-esophageal reflux disease without esophagitis (7) Hypertension Qualifiers: Hypertension type: essential hypertension Qualified Code(s): I10 - Essential (primary) hypertension (9) Nicotine dependence Qualifiers: Nicotine product type: cigarettes Substance use status: uncomplicated Qualified Code(s): F17.210 - Nicotine dependence, cigarettes, uncomplicated
== END 2016-09-02 12:15 | disposition home or self-care (01) | DRG 772 ==
LOC: YASAS 12:08 → Y5N 14:44
PROVIDERS: ADMIT Psychiatry & Neurology Psychiatry; ATTEND Psychiatry & Neurology Psychiatry
PROC: HZ42ZZZ Group Counseling for Substance Abuse Treatment, Cognitive-Behavioral (ICD-10-PCS; principal; 2016-08-20)
DX: F14.20 Cocaine dependence, uncomplicated (principal); F11.10 Opioid abuse, uncomplicated; F17.210 Nicotine dependence, cigarettes, uncomplicated; F33.2 Major depressive disorder, recurrent severe without psychotic features; J45.909 Unspecified asthma, uncomplicated; J44.9 Chronic obstructive pulmonary disease, unspecified; I48.91 Unspecified atrial fibrillation; I10 Essential (primary) hypertension; I42.9 Cardiomyopathy, unspecified; K21.9 Gastro-esophageal reflux disease without esophagitis; G62.9 Polyneuropathy, unspecified; H91.92 Unspecified hearing loss, left ear; Z79.01 Long term (current) use of anticoagulants; Z63.4 Disappearance and death of family member; Z95.810 Presence of automatic (implantable) cardiac defibrillator
CPT/HCPCS: 36415; 80053; 80162; 81003; 81015; 85027; 85610; 86593; 93005; 93010

== ENCOUNTER 2018-04-20 13:21 | Inpatient (IN) | payer OTHER ==
[2018-04-20 15:04] VITALS: BMI 26.8
--- NOTE | 2018-04-20 18:47 | HP ---
COWS - Scale Resting Pulse: 1= [place] 81-100 Sweatin=Flushed/Facial Moisture Restless Observation: 1= Difficult to Sit Still Pupil Size: 2= Moderately Dilated Bone or Joint Aches: 2= Severe Diffuse Aches Runny Nose/ Eye Tearin= Runny Nose/Eyes GI Upset > 30mins: 2= Nausea/Diarrhea Tremor Observation: 0= None Yawning Observation: 0= None Anxiety or Irritability: 2=Irritable/Anxious Goose Flesh Skin: 0=Smooth Skin COWS Score: 14 CIWA Score - Admission Criteria [facility] Guidelines: Admission for Medically Managed Detox: Requires at least one of the followin. CIWA greater than 12 2. Seizures within the past 24 hours 3. Delirium tremens within the past 24 hours 4. Hallucinations within the past 24 hours 5. Acute intervention needed for co occurring medical disorder 6. Acute intervention needed for co occurring psychiatric disorder 7. Severe withdrawal that cannot be handled at a lower level of care (continued vomiting, continued diarrhea, abnormal vital signs) requiring intravenous medication and/or fluids 8. Admission [facility] Chief Complaint: HEROIN WITHDRAWAL SX. Allergies/Adverse Reactions: Allergies Allergy/AdvReac Type Severity Reaction Status Date / Time chlorpromazine HCl Allergy Severe Rash Verified 08/20/16 13:54 [From Thorazine] History of Present Illness: PATIENT PRESENTS WITH HEROIN WITHDRAWAL SX. PATIENT HAS HX OF DETOX HERE AT [facility] IN 2017. PATIENT STARTED SNIFFING HEROIN AT AGE 22. PATIENT SNIFFS 6-7 BAGS DAILY, LAST TIME HE USED WAS YESTERDAY. PATIENT DENIES IVDA. PATEINT DENIES HX OF SEIZURES, +H/O OVERDOSE LAST YEAR. +BLACKOUTS. UDS +OPI/MTD. + TOBACCO USE 10 CIG/DAY X 40 YEARS. PMH INCLUDES AFIB, INTERNAL DEFIBRILLATOR ( CHANGED IN 2016), COPD, RHEUMATOID ARTHRITIS, HTN, DEPRESSION AND ANXIETY. DENIES SI/HI AND SUICIDE ATTEMPTS. Exam Limitations: No Limitations - Ebola screening Have you traveled outside of the country in the last 21 days: No Have you had contact with anyone from an Ebola affected area: No Have you been sick,other than usual withdrawal symptoms: No Do you have a fever: No - Review of Systems Constitutional: Chills, Night Sweats, Changes in sleep EENT: reports: Tearing, Nose Congestion Respiratory: reports: Cough (NON-PRODUCTIVE) Cardiac: reports: Irregular Heart Rate GI: reports: Diarrhea, Nausea, Poor Fluid Intake, Abdominal cramping : reports: No Symptoms Reported Musculoskeletal: reports: Back Pain, Joint Pain, Muscle Pain Integumentary: reports: Flushing, Lumps (ON ARMS DUE TO R.A.), Sweating Neuro: reports: Numbness, Tingling, Tremors Endocrine: reports: No Symptoms Reported, Flushing Hematology: reports: No Symptoms Reported Psychiatric: reports: Orientated x3, Anxious, Depressed Patient History - Patient Medical History Hx Anemia: No Hx Asthma: Yes Hx Chronic Obstructive Pulmonary Disease (COPD): Yes Hx Cancer: No Hx Cardiac Disorders: Yes (pacemaker and defibrillator placed 12/2015) Hx Congestive Heart Failure: No Hx Hypertension: Yes Hx Hypercholesterolemia: Yes Hx Pacemaker: Yes HX Cerebrovascular Accident: No Hx Seizures: No Hx Dementia: No Hx Diabetes: No Hx Gastrointestinal Disorders: No Hx Liver Disease: No Hx Genitourinary Disorders: No Hx Sexually Transmitted Disorders: No Hx Renal Disease (ESRD): No Hx Thyroid Disease: No Hx Human Immunodeficiency Virus (HIV): No (negative, denies testing) Hx Hepatitis C: No (negative) Hx Depression: Yes Hx Suicide Attempt: No (denies any S/H ideation) Hx Bipolar Disorder: No Hx Schizophrenia: No - Patient Surgical History Past Surgical History: Yes Hx Neurologic Surgery: No Hx Cataract Extraction: No Hx Cardiac Surgery: Yes (2009 defibrillator then again a pacemaker & defib 12/25 ) Hx Lung Surgery: No Hx Breast Surgery: No Hx Breast Biopsy: No Hx Abdominal Surgery: Yes (B/L abdominal hernia age 4) Hx Appendectomy: No Hx Cholecystectomy: No Hx Genitourinary Surgery: No Hx Orthopedic Surgery: No Other Surgical History: bilateral inguinal hernia repair at age 4 Anesthesia Reaction: No - PPD History Previous Implant?: Yes Documented Results: Negative w/proof Date: 08/22/16 PPD to be Administered?: Yes - Smoking Cessation Smoking history: Current every day smoker Have you smoked in the past 12 months: Yes Aproximately how many cigarettes per day: 10 Hx Chewing Tobacco Use: No Initiated information on smoking cessation: Yes 'Breaking Loose' booklet given: 04/20/18 - Substance & Tx. History Hx Alcohol Use: No Hx Substance Use: Yes Substance Use Type: Heroin Hx Substance Use Treatment: Yes - Substances Abused Heroin Route: Inhalation Frequency: Daily Amount used: 7 bags Age of first use: 20 Date of Last Use: 04/19/18 Family Disease History - Family Disease History Family Disease History: Heart Disease: Father, Mother Admission Physical Exam S - Vital Signs Vital Signs: Vital Signs - 24 hr 04/20/18 15:02 Temperature 97.9 F Pulse Rate 91 H Respiratory 20 Rate Blood Pressure 139/93 - Physical General Appearance: Yes: Disheveled, Tremorous, Sweating, Anxious HEENTM: Yes: EOMI, Hearing grossly Normal, Normocephalic, Normal Voice, MATT, Pharynx Normal, Nasal Congestion Respiratory: Yes: Chest Non-Tender, No Respiratory Distress, No Accessory Muscle Use, Rhonchi (clears with coughing) Neck: Yes: No masses,lesions,Nodules, Supple, Trachea in good position Breast: Yes: Breast Exam Deferred Cardiology: Yes: Regular Rhythm, Regular Rate, S1, S2 Abdominal: Yes: Normal Bowel Sounds, Non Tender, Soft Genitourinary: Yes: Within Normal Limits Back: Yes: Muscle Spasm Musculoskeletal: Yes: full range of Motion, Gait Steady, Back pain, Joint Stiffness, Muscle Pain, Other Extremities: Yes: Normal Range of Motion, Non-Tender, Tremors, Other (lumps on forearms due to RA) 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 intact, Fully Oriented, Alert, Motor Strength 5/5, Normal Response, Numbness, Depressed Affect Integumentary: Yes: Normal Color, Warm, Other (flushing, lesions and scabs on forearms) Lymphatic: Yes: Within Normal Limits - Diagnostic (1) Opioid dependence with withdrawal Current Visit: Yes Status: Acute (2) COPD (chronic obstructive pulmonary disease) Current Visit: Yes Status: Chronic Qualifiers: Chronic bronchitis type: unspecified (3) MDD (major depressive disorder), recurrent episode, moderate Current Visit: Yes Status: Chronic (4) Atrial fibrillation Current Visit: Yes Status: Chronic Qualifiers: Atrial fibrillation type: unspecified Qualified Code(s): I48.91 - Unspecified atrial fibrillation Comment: has an inplant (pacemaker and defibrillator) (5) Cardiomyopathy Current Visit: Yes Status: Chronic Qualifiers: Cardiomyopathy type: unspecified Qualified Code(s): I42.9 - Cardiomyopathy , unspecified (6) Cocaine dependence Current Visit: Yes Status: Chronic Qualifiers: Substance use status: uncomplicated Qualified Code(s): F14.20 - Cocaine dependence, uncomplicated (7) GERD (gastroesophageal reflux disease) Current Visit: Yes Status: Chronic Qualifiers: Esophagitis presence: without esophagitis Qualified Code(s): K21.9 - Gastro -esophageal reflux disease without esophagitis (8) Hypertension Current Visit: Yes Status: Chronic Qualifiers: Hypertension type: essential hypertension Qualified Code(s): I10 - Essential (primary) hypertension (9) Neuropathy Current Visit: Yes Status: Chronic (10) Nicotine dependence Current Visit: Yes Status: Chronic Qualifiers: Nicotine product type: cigarettes Substance use status: uncomplicated Qualified Code(s): F17.210 - Nicotine dependence, cigarettes, uncomplicated Cleared for Admission [facility] - Detox or Rehab [facility] Level of Care: Medically Managed Detox Regimen/Protocol: Methadone S Breath Alcohol Content Breath Alcohol Content: 0 Urine Drug Screen - Results Drug Screen Negative: No Urine Drug Screen Results: OPI-Opiates, MTD-Methadone Inpatient Rehab Admission - Rehab Decision to Admit Inpatient rehab admission?: No
[2018-04-20] MEDS ORDERED: NICOTINE POLACRILEX 2 MG GUM BUC PRN (19:03)
[2018-04-20] MEDS ORDERED: MENTHOL/PHENOL 1 EACH UD MM PRN (19:03)
[2018-04-20] MEDS ORDERED: MAGNESIUM CITRATE 300 ML BOTTLE PO PRN (19:03)
[2018-04-20] MEDS ORDERED: MAGNESIUM HYDROX 2400MG/30ML ORAL SUSPENSION 30 ML CUP PO PRN (19:03)
[2018-04-20] MEDS ORDERED: BISMUTH SUBSALICYLATE 524 MG/30 ML UD PO PRN (19:03)
[2018-04-20] MEDS ORDERED: MAG HYDROX/AL HYDROX/SIMETH 30 ML UNIT-DOSE CUP PO PRN (19:03)
[2018-04-20] MEDS ORDERED: MELATONIN 5 MG TABLETS PO PRN (19:03)
[2018-04-20] MEDS ORDERED: IBUPROFEN 400 MG TABLET (FP) PO PRN (19:03)
[2018-04-20] MEDS ORDERED: cloNIDine HCL 0.1 MG TABLET PO PRN (19:05)
[2018-04-20] MEDS ORDERED: METHADONE HCL 10 MG TABLET (FOR DETOX USE ONLY) PO ONE ×2 (21:00→23:00)
[2018-04-20] MEDS ORDERED: DILTIAZEM HCL 300 MG PO SCH (22:00)
[2018-04-20] MEDS ORDERED: WARFARIN NA 2 MG TABLET (UD) PO SCH (22:00)
[2018-04-20] MEDS: GABAPENTIN 300 MG CAPSULE (FP) PO SCH (22:13)
[2018-04-20] MEDS: THIAMINE HCL 100 MG TABLET (FP) PO SCH (22:13)
[2018-04-20] MEDS: BUDESONIDE/FORMETEROL FUMARATE 160/4.5 mcg INHALER IH SCH (22:14)
[2018-04-20] MEDS: DIGOXIN 0.125 MG TABLET (FP) PO SCH (23:11)
[2018-04-20] MEDS: WARFARIN NA 5 MG TABLET (UD) PO SCH (23:13)
[2018-04-20] MEDS ORDERED: QUEtiapine FUMARATE 100 MG TABLET (FP) PO ONE (23:56)
[2018-04-21] MEDS: ACETAMINOPHEN 325 MG TABLET (FP) PO PRN ×2 (00:17→22:03)
[2018-04-21] MEDS: GABAPENTIN 300 MG CAPSULE (FP) PO SCH ×3 (05:24→22:04)
[2018-04-21] MEDS ORDERED: METHADONE HCL 5 MG TABLET (FOR DETOX USE ONLY) PO ONE (10:00)
[2018-04-21] MEDS ORDERED: PRENATAL VITAMINS W/ FOLIC ACID TABLET (FP) PO SCH (10:00)
[2018-04-21] MEDS ORDERED: METHOTREXATE 2.5 MG TABLET PO SCH (10:00)
[2018-04-21 10:24] LABS: HEMATOCRIT 32.2 % (35.4-49); HEMOGLOBIN 10.5 GM/dL (11.7-16.9); MCH 27.5 pg (25.7-33.7); MCHC 32.5 g/dl (32.0-35.9); MEAN CELL VOLUME 84.8 fl (80-96); PLATELET COUNT 271 K/MM3 (134-434); RDW 24.3 % (11.9-15.9); WHITE BLOOD COUNT 10.5 K/mm3 (4.0-10.0)
[2018-04-21] MEDS: LISINOPRIL 20 MG TABLET (FP) PO SCH (10:25)
[2018-04-21] MEDS: PANTOPRAZOLE 40 MG TABLET (FP) PO SCH (10:25)
[2018-04-21 10:26] LABS: INR 3.42 (0.83-1.09); PROTHROMBIN TIME (PATIENT) 40.9 SEC (9.7-13.0)
[2018-04-21] MEDS: NICOTINE 14 MG/24 HOURS TOPICAL PATCH TD SCH (10:26)
[2018-04-21] MEDS: BUDESONIDE/FORMETEROL FUMARATE 160/4.5 mcg INHALER IH SCH ×2 (10:26→22:02)
[2018-04-21] MEDS: predniSONE 10 MG TABLET (UD) PO SCH (10:28)
--- NOTE | 2018-04-21 10:55 | EKG ---
Test Reason : Blood Pressure : / mmHG Vent. Rate : 091 BPM Atrial Rate : 107 BPM P-R Int : 000 ms QRS Dur : 086 ms QT Int : 316 ms P-R-T Axes : 000 -29 044 degrees QTc Int : 388 ms POOR DATA QUALITY, INTERPRETATION MAY BE ADVERSELY AFFECTED ATRIAL FIBRILLATION NONSPECIFIC ST AND T WAVE ABNORMALITY ABNORMAL ECG WHEN COMPARED WITH ECG OF 20-AUG-2016 18:04, QRS AXIS SHIFTED LEFT QT HAS SHORTENED Confirmed by ROCÍO CORONADO, ANA ([id number]) on 04/21/2018 10:55:05 AM Referred By: Confirmed By:ANA ALFORD MD
[2018-04-21] MEDS: TIOTROPIUM BROMIDE 2.5 MCG (SPIRIVA) RESPIMAT INHALER IH SCH (11:17)
[2018-04-21 11:27] LABS: ALBUMIN 2.9 g/dl (3.4-5.0); ALK PHOS 138 U/L (45-117); ANION GAP 6 MMOL/L (8-16); BILIRUBIN,TOTAL 0.3 mg/dL (0.2-1); BLOOD UREA NITROGEN 16 mg/dL (7-18); CALCIUM 7.9 mg/dL (8.5-10.1); CHLORIDE 107 mmol/L (98-107); CO2 28 mmol/L (21-32); CREATININE 0.7 mg/dL (0.55-1.3); GLUCOSE,RANDOM 92 mg/dL (74-106); POTASSIUM 4.2 mmol/L (3.5-5.1); SGOT/AST 12 U/L (15-37); SGPT/ALT 17 U/L (13-61); SODIUM 141 mmol/L (136-145); TOT PROT 6.3 g/dl (6.4-8.2)
--- NOTE | 2018-04-21 12:14 | PN ---
[facility] COWS - Scale Resting Pulse: 0= [place] 80 or Below Sweatin=Flushed/Facial Moisture Restless Observation: 1= Difficult to Sit Still Pupil Size: 0= Normal to Room Light Bone or Joint Aches: 1= Mild Discomfort Runny Nose/ Eye Tearin= Nasal Congestion GI Upset > 30mins: 1= Stomach Cramp Tremor Observation of Outstretched Hands: 2= Slight Tremor Visible Yawning Observation: 2= >3x During Session Anxiety or Irritability: 2=Irritable/Anxious Goose Flesh Skin: 0=Smooth Skin COWS Score: 12 BHS Progress Note (SOAP) Subjective: sweats shakes interrupted sleep body aches tired Objective: 04/21/18 12:13 Vital Signs Temperature 97.5 F L 04/21/18 09:47 Pulse Rate 67 04/21/18 09:47 Respiratory Rate 18 04/21/18 09:47 Blood Pressure 110/61 04/21/18 09:47 O2 Sat by Pulse Oximetry (%) Laboratory Tests 04/21/18 04/21/18 04/21/18 06:39 07:00 07:00 WBC 10.5 H RBC 3.80 L Hgb 10.5 L Hct 32.2 L D MCV 84.8 MCH 27.5 MCHC 32.5 RDW 24.3 H Plt Count 271 MPV 8.0 PT with INR INR Sodium 141 Potassium 4.2 Chloride 107 Carbon Dioxide 28 Anion Gap 6 L BUN 16 Creatinine 0.7 Creat Clearance w eGFR > 60 POC Glucometer 135 Random Glucose 92 Calcium 7.9 L Total Bilirubin 0.3 AST 12 L ALT 17 Alkaline Phosphatase 138 H Total Protein 6.3 L Albumin 2.9 L Digoxin 0.64 L 04/21/18 07:00 WBC RBC Hgb Hct MCV MCH MCHC RDW Plt Count MPV PT with INR 40.90 H INR 3.42 H Sodium Potassium Chloride Carbon Dioxide Anion Gap BUN Creatinine Creat Clearance w eGFR POC Glucometer Random Glucose Calcium Total Bilirubin AST ALT Alkaline Phosphatase Total Protein Albumin Digoxin aaox3 ambulating no acute distress Assessment: 04/21/18 12:14 withdrawal sx Plan: continue detox increase fluids
[2018-04-21] MEDS: ALBUTEROL SO4 8 GM HFA INHALER IH PRN ×2 (12:21→22:02)
--- NOTE | 2018-04-21 12:47 | CONSULT ---
[facility] Psychiatric Consult - Data Date of interview: 04/21/18 Admission source: Self-referred Identifying data: Mr Vela is a 62 years old male, father of 3 children, unemployed receiving SSI, homeless seeking detox treatment for opioid Substance Abuse History: Reports history of opioid use. He started using heroin at age 20, consumes 7 bags daily. Lasy used on 04/19/18. Refer to internet security specialist's summary for further information Medical History: Significant for COPD, hypertension, dyslipidemia, AFib, history of surgery for implation of defibrillator in 2014 and bilateral inguinal hernia repair as a child. Smokes 10 cigarettes daily Psychiatric History: Patient reports that he has been depressed all his life but depression worsened after the of his in 2014. Reports 4 previous psychiatric hospitalizations and 2 suicidal attempts(hanging & shooting). Most recent psychiatric admission was early 2017 to [facility] for 2 weeks depression. No current OPD treatment but prescribed Seroquel 300 mg po HS and Remeron [address] HS [address] Bang, his primary care physician. Above verified by external medication search(filled scripts for 30 days supply of Seroquel 300 mg Hs & Remeron 30 mg HS at [facility] on 04/16/18). At present, reports feeling anxious and sleeping poorly Physical/Sexual Abuse/Trauma History: Denies history of emotional, physical or sexual abuse as well as DV relationship. No service Additional Comment: Reports history of multiple previous arrests including 2 felony convictions for DWI. No parole/probation Mental Status Exam - Mental Status Exam Alert and Oriented to: Time, Place, Person Cognitive Function: Fair Patient Appearance: Disheveled Mood: Anxious Affect: Appropriate Patient Behavior: Cooperative Speech Pattern: Clear Voice Loudness: Normal Thought Process: Intact, Goal Oriented Thought Disorder: Not Present Hallucinations: Denies Suicidal Ideation: Denies Homicidal Ideation: Denies Insight/Judgement: Poor Sleep: Poorly Appetite: Good Muscle strength/Tone: Normal Gait/Station: Normal Psychiatric Findings - Problem List ([place] 1, 2,3) (1) MDD (major depressive disorder), recurrent episode, moderate Current Visit: Yes Status: Chronic (2) Substance-induced anxiety disorder Current Visit: Yes Status: Acute (3) Substance-induced sleep disorder Current Visit: Yes Status: Acute (4) Opioid dependence with withdrawal Current Visit: Yes Status: Acute (5) Nicotine dependence Current Visit: Yes Status: Chronic Qualifiers: Nicotine product type: cigarettes Substance use status: uncomplicated Qualified Code(s): F17.210 - Nicotine dependence, cigarettes, uncomplicated (6) Atrial fibrillation Current Visit: Yes Status: Chronic Qualifiers: Atrial fibrillation type: unspecified Qualified Code(s): I48.91 - Unspecified atrial fibrillation Comment: has an inplant (pacemaker and defibrillator) (7) COPD (chronic obstructive pulmonary disease) Current Visit: Yes Status: Chronic Qualifiers: Chronic bronchitis type: unspecified (8) GERD (gastroesophageal reflux disease) Current Visit: Yes Status: Chronic Qualifiers: Esophagitis presence: without esophagitis Qualified Code(s): K21.9 - Gastro -esophageal reflux disease without esophagitis (9) Hypertension Current Visit: Yes Status: Chronic Qualifiers: Hypertension type: essential hypertension Qualified Code(s): I10 - Essential (primary) hypertension (10) Neuropathy Current Visit: Yes Status: Chronic - Initial Treatment Plan Initial Treatment Plan: 1) Continue Seroquel 300 mg po HS and Remeron 30 mg po HS. 2) Continue inpatient detoxification
[2018-04-21] MEDS: guaiFENesin 200 MG/10 ML 10 ML UNIT-DOSE CUPS PO PRN ×2 (15:51→20:56)
[2018-04-21] MEDS: METHOTREXATE 2.5 MG TABLET PO SCH (15:57)
[2018-04-21] MEDS: WARFARIN NA 3 MG TABLET PO SCH (17:19)
[2018-04-21 19:39] LABS: URINE APPEARANCE CLEAR; URINE BILIRUBIN NEGATIVE (<2.0 mg/dL); URINE COLOR AMBER; URINE GLUCOSE (UA) NEGATIVE (NEGATIVE); URINE KETONE NEGATIVE (NEGATIVE); URINE LEUK ESTERASE NEGATIVE (NEGATIVE); URINE NITRITE NEGATIVE (NEGATIVE); URINE PROTEIN 2+ (NEGATIVE)
[2018-04-21 20:03] LABS: EPI CELLS RARE /HPF (FEW); URINE MUCUS RARE
[2018-04-21] MEDS: ALBUTEROL SO4 2.5/IPRATROPIUM 0.5 INH SOL 3 ML VIAL.NEB. NEB PRN (20:33)
[2018-04-21] MEDS: DIGOXIN 0.125 MG TABLET (FP) PO SCH (22:04)
[2018-04-21] MEDS: MIRTAZAPINE 30 MG TABLET (FP) PO SCH (22:04)
[2018-04-21] MEDS: QUEtiapine FUMARATE 300 MG TABLET PO SCH (22:04)
[2018-04-21] MEDS: THIAMINE HCL 100 MG TABLET (FP) PO SCH (22:05)
[2018-04-22] MEDS: GABAPENTIN 300 MG CAPSULE (FP) PO SCH ×3 (06:22→22:25)
[2018-04-22] MEDS ORDERED: METHADONE HCL 10 MG TABLET (FOR DETOX USE ONLY) PO ONE (10:00)
[2018-04-22] MEDS: PANTOPRAZOLE 40 MG TABLET (FP) PO SCH (10:21)
[2018-04-22] MEDS: LISINOPRIL 20 MG TABLET (FP) PO SCH (10:21)
[2018-04-22] MEDS: BUDESONIDE/FORMETEROL FUMARATE 160/4.5 mcg INHALER IH SCH ×2 (10:22→22:27)
[2018-04-22] MEDS: NICOTINE 14 MG/24 HOURS TOPICAL PATCH TD SCH (10:22)
[2018-04-22] MEDS: predniSONE 10 MG TABLET (UD) PO SCH (11:11)
[2018-04-22] MEDS: TIOTROPIUM BROMIDE 2.5 MCG (SPIRIVA) RESPIMAT INHALER IH SCH (11:12)
--- NOTE | 2018-04-22 13:03 | PN ---
[facility] COWS - Scale Resting Pulse: 0= [place] 80 or Below Sweatin=Flushed/Facial Moisture Restless Observation: 1= Difficult to Sit Still Pupil Size: 0= Normal to Room Light Bone or Joint Aches: 2= Severe Diffuse Aches Runny Nose/ Eye Tearin= Nasal Congestion GI Upset > 30mins: 1= Stomach Cramp Tremor Observation of Outstretched Hands: 2= Slight Tremor Visible Yawning Observation: 2= >3x During Session Anxiety or Irritability: 2=Irritable/Anxious Goose Flesh Skin: 0=Smooth Skin COWS Score: 13 BHS Progress Note (SOAP) Subjective: cough sweats interrupted sleep body aches Objective: 04/22/18 13:05 Vital Signs Temperature 98.9 F 04/22/18 09:22 Pulse Rate 65 04/22/18 09:22 Respiratory Rate 17 04/22/18 09:22 Blood Pressure 171/91 H 04/22/18 09:22 O2 Sat by Pulse Oximetry (%) Laboratory Tests 04/20/18 04/21/18 04/21/18 14:15 06:39 07:00 WBC 10.5 H RBC 3.80 L Hgb 10.5 L Hct 32.2 L D MCV 84.8 MCH 27.5 MCHC 32.5 RDW 24.3 H Plt Count 271 MPV 8.0 PT with INR INR Sodium Potassium Chloride Carbon Dioxide Anion Gap BUN Creatinine Creat Clearance w eGFR POC Glucometer 135 Random Glucose Calcium Total Bilirubin AST ALT Alkaline Phosphatase Total Protein Albumin Urine Color Maryjane Urine Appearance Clear Urine pH 5.0 Ur Specific [place] 1.029 Urine Protein 2+ H Urine Glucose (UA) Negative Urine Ketones Negative Urine Blood Negative Urine Nitrite Negative Urine Bilirubin Negative Urine Urobilinogen 2.0 Ur Leukocyte Esterase Negative Urine WBC (Auto) 1 Urine RBC (Auto) 20 Ur Epithelial Cells Rare Urine Mucus Rare Digoxin RPR Titer 04/21/18 04/21/18 04/21/18 07:00 07:00 07:00 WBC RBC Hgb Hct MCV MCH MCHC RDW Plt Count MPV PT with INR 40.90 H INR 3.42 H Sodium 141 Potassium 4.2 Chloride 107 Carbon Dioxide 28 Anion Gap 6 L BUN 16 Creatinine 0.7 Creat Clearance w eGFR > 60 POC Glucometer Random Glucose 92 Calcium 7.9 L Total Bilirubin 0.3 AST 12 L ALT 17 Alkaline Phosphatase 138 H Total Protein 6.3 L Albumin 2.9 L Urine Color Urine Appearance Urine pH Ur Specific [place] Urine Protein Urine Glucose (UA) Urine Ketones Urine Blood Urine Nitrite Urine Bilirubin Urine Urobilinogen Ur Leukocyte Esterase Urine WBC (Auto) Urine RBC (Auto) Ur Epithelial Cells Urine Mucus Digoxin 0.64 L RPR Titer Nonreactive 04/21/18 16:31 WBC RBC Hgb Hct MCV MCH MCHC RDW Plt Count MPV PT with INR INR Sodium Potassium Chloride Carbon Dioxide Anion Gap BUN Creatinine Creat Clearance w eGFR POC Glucometer 93 Random Glucose Calcium Total Bilirubin AST ALT Alkaline Phosphatase Total Protein Albumin Urine Color Urine Appearance Urine pH Ur Specific [place] Urine Protein Urine Glucose (UA) Urine Ketones Urine Blood Urine Nitrite Urine Bilirubin Urine Urobilinogen Ur Leukocyte Esterase Urine WBC (Auto) Urine RBC (Auto) Ur Epithelial Cells Urine Mucus Digoxin RPR Titer aaox3 ambulating no acute distress Assessment: 04/22/18 13:12 mild withdrawal sx Plan: continue detox increase fluids mucinex ordered d/c in am
[2018-04-22] MEDS: guaiFENesin 600 MG TABLET.ER (FP) PO SCH ×2 (14:43→22:25)
[2018-04-22] MEDS: ACETAMINOPHEN 325 MG TABLET (FP) PO PRN (14:45)
[2018-04-22] MEDS: WARFARIN NA 5 MG TABLET (UD) PO SCH (17:05)
[2018-04-22] MEDS ORDERED: WARFARIN NA 3 MG TABLET PO SCH (22:00)
[2018-04-22] MEDS: QUEtiapine FUMARATE 300 MG TABLET PO SCH (22:25)
[2018-04-22] MEDS: THIAMINE HCL 100 MG TABLET (FP) PO SCH (22:25)
[2018-04-22] MEDS: MIRTAZAPINE 30 MG TABLET (FP) PO SCH (22:25)
[2018-04-22] MEDS: DIGOXIN 0.125 MG TABLET (FP) PO SCH (22:25)
[2018-04-23] MEDS ORDERED: METHADONE HCL 5 MG TABLET (FOR DETOX USE ONLY) PO ONE (06:00)
[2018-04-23] MEDS: GABAPENTIN 300 MG CAPSULE (FP) PO SCH ×3 (06:09→22:14)
[2018-04-23] MEDS: LISINOPRIL 20 MG TABLET (FP) PO SCH (09:38)
[2018-04-23] MEDS: BUDESONIDE/FORMETEROL FUMARATE 160/4.5 mcg INHALER IH SCH ×2 (09:38→22:13)
[2018-04-23] MEDS: METHOTREXATE 2.5 MG TABLET PO SCH (09:38)
[2018-04-23] MEDS: TIOTROPIUM BROMIDE 2.5 MCG (SPIRIVA) RESPIMAT INHALER IH SCH (09:38)
[2018-04-23] MEDS: PANTOPRAZOLE 40 MG TABLET (FP) PO SCH (09:38)
[2018-04-23] MEDS: guaiFENesin 600 MG TABLET.ER (FP) PO SCH ×2 (09:38→22:14)
[2018-04-23] MEDS: NICOTINE 14 MG/24 HOURS TOPICAL PATCH TD SCH (09:40)
[2018-04-23] MEDS: predniSONE 10 MG TABLET (UD) PO SCH (09:40)
--- NOTE | 2018-04-23 11:58 | DS ---
[facility] Detox Discharge Summary Admission Date: 04/20/18 Discharge Date: 04/23/18 - History Present History: Cannabis Dependence, Cocaine Dependence, Opioid Dependence Pertinent Past History: Neuropathy, GERD, HTN, HLD, COPD, Asthma, RA, Afib, MDD - Physical Exam Results Vital Signs: Vital Signs Temperature 98.1 F 04/23/18 10:15 Pulse Rate 62 04/23/18 10:15 Respiratory Rate 18 04/23/18 10:15 Blood Pressure 129/69 04/23/18 10:15 O2 Sat by Pulse Oximetry (%) Pertinent Admission Physical Exam Findings: Withdrawal sx Laboratory Last Values WBC 10.5 K/mm3 (4.0-10.0) H 04/21/18 07:00 RBC 3.80 M/mm3 (4.00-5.60) L 04/21/18 07:00 Hgb 10.5 GM/dL (11.7-16.9) L 04/21/18 07:00 Hct 32.2 % (35.4-49) L D 04/21/18 07:00 MCV 84.8 fl (80-96) 04/21/18 07:00 MCH 27.5 pg (25.7-33.7) 04/21/18 07:00 MCHC 32.5 g/dl (32.0-35.9) 04/21/18 07:00 RDW 24.3 % (11.9-15.9) H 04/21/18 07:00 Plt Count 271 K/MM3 (134-434) 04/21/18 07:00 MPV 8.0 fl (7.5-11.1) 04/21/18 07:00 PT with INR 40.90 SEC (9.7-13.0) H 04/21/18 07:00 INR 3.42 (0.83-1.09) H 04/21/18 07:00 Sodium 141 mmol/L (136-145) 04/21/18 07:00 Potassium 4.2 mmol/L (3.5-5.1) 04/21/18 07:00 Chloride 107 mmol/L (98-107) 04/21/18 07:00 Carbon Dioxide 28 mmol/L (21-32) 04/21/18 07:00 Anion Gap 6 MMOL/L (8-16) L 04/21/18 07:00 BUN 16 mg/dL (7-18) 04/21/18 07:00 Creatinine 0.7 mg/dL (0.55-1.3) 04/21/18 07:00 Creat Clearance w eGFR > 60 (>60) 04/21/18 07:00 POC Glucometer 93 UNITS (80-120) 04/21/18 16:31 Random Glucose 92 mg/dL (74-106) 04/21/18 07:00 Calcium 7.9 mg/dL (8.5-10.1) L 04/21/18 07:00 Total Bilirubin 0.3 mg/dL (0.2-1) 04/21/18 07:00 AST 12 U/L (15-37) L 04/21/18 07:00 ALT 17 U/L (13-61) 04/21/18 07:00 Alkaline Phosphatase 138 U/L (45-117) H 04/21/18 07:00 Total Protein 6.3 g/dl (6.4-8.2) L 04/21/18 07:00 Albumin 2.9 g/dl (3.4-5.0) L 04/21/18 07:00 Urine Color Maryjane 04/20/18 14:15 Urine Appearance Clear 04/20/18 14:15 Urine pH 5.0 (5.0-8.0) 04/20/18 14:15 Ur Specific [place] 1.029 (1.010-1.035) 04/20/18 14:15 Urine Protein 2+ (NEGATIVE) H 04/20/18 14:15 Urine Glucose (UA) Negative (NEGATIVE) 04/20/18 14:15 Urine Ketones Negative (NEGATIVE) 04/20/18 14:15 Urine Blood Negative (NEGATIVE) 04/20/18 14:15 Urine Nitrite Negative (NEGATIVE) 04/20/18 14:15 Urine Bilirubin Negative (<2.0 mg/dL) 04/20/18 14:15 Urine Urobilinogen 2.0 mg/dL (0.2-1.0) 04/20/18 14:15 Ur Leukocyte Esterase Negative (NEGATIVE) 04/20/18 14:15 Urine WBC (Auto) 1 /hpf (3-5) 04/20/18 14:15 Urine RBC (Auto) 20 /hpf (0-3) 04/20/18 14:15 Ur Epithelial Cells Rare /HPF (FEW) 04/20/18 14:15 Urine Mucus Rare 04/20/18 14:15 Digoxin 0.64 ng/ml (0.8-2.0) L 04/21/18 07:00 RPR Titer Nonreactive (NONREACTIVE) 04/21/18 07:00 Labs noted - Treatment Hospital Course: Detox Protocol Followed, Detoxed Safely, Responded well, Discharged Condition Good - Medication Discharge Medications: Ambulatory Orders Warfarin Sodium [Coumadin] 3 mg PO DAILY 08/20/16 Digoxin [Lanoxin -] 0.125 mg PO HS #30 tab 09/02/16 Mirtazapine [Remeron -] 30 mg PO HS #30 tablet 09/02/16 Pantoprazole Sodium [Protonix -] 40 mg PO DAILY #30 tab 09/02/16 Quetiapine Fumarate [Seroquel -] 300 mg PO HS #30 tablet 09/02/16 Budesonide/Formeterol Fumarate [SYMBICORT 160/4.5mcg -] 1 inh PO BID 04/20/18 Diltiazem HCl [Diltiazem 24Hr ER] 240 mg PO HS 04/20/18 Gabapentin [Neurontin -] 300 mg PO TID 04/20/18 Lisinopril [Prinivil] 40 mg PO DAILY 04/20/18 Methotrexate [Mexate -] 1 tablet PO Q2D 04/20/18 Metoprolol Succinate [Toprol Xl] 200 mg PO HS 04/20/18 Prednisone 10 mg PO DAILY 04/20/18 Warfarin Na [Coumadin -] 5 mg PO DAILY@1800 04/20/18 - Diagnosis (1) Opioid dependence with withdrawal Current Visit: Yes Status: Acute (2) COPD (chronic obstructive pulmonary disease) Current Visit: Yes Status: Chronic Qualifiers: Chronic bronchitis type: unspecified (3) Cocaine dependence Current Visit: Yes Status: Chronic Qualifiers: Substance use status: uncomplicated Qualified Code(s): F14.20 - Cocaine dependence, uncomplicated (4) GERD (gastroesophageal reflux disease) Current Visit: Yes Status: Chronic Qualifiers: Esophagitis presence: without esophagitis Qualified Code(s): K21.9 - Gastro -esophageal reflux disease without esophagitis (5) Hypertension Current Visit: Yes Status: Chronic Qualifiers: Hypertension type: essential hypertension Qualified Code(s): I10 - Essential (primary) hypertension (6) MDD (major depressive disorder), recurrent episode, moderate Current Visit: Yes Status: Chronic (7) Neuropathy Current Visit: Yes Status: Chronic (8) Nicotine dependence Current Visit: Yes Status: Chronic Qualifiers: Nicotine product type: cigarettes Substance use status: uncomplicated Qualified Code(s): F17.210 - Nicotine dependence, cigarettes, uncomplicated - AMA Did Patient Leave Against Medical Advice: No
--- NOTE | 2018-04-23 12:03 | PN ---
S Progress Note (SOAP) Subjective: Mild tremors and fatigue Objective: 04/23/18 12:02 Last Vital Signs Temp Pulse Resp BP Pulse Ox 98.1 F 62 18 129/69 04/23/18 10:15 04/23/18 10:15 04/23/18 10:15 04/23/18 10:15 Laboratory Last Values WBC 10.5 K/mm3 (4.0-10.0) H 04/21/18 07:00 RBC 3.80 M/mm3 (4.00-5.60) L 04/21/18 07:00 Hgb 10.5 GM/dL (11.7-16.9) L 04/21/18 07:00 Hct 32.2 % (35.4-49) L D 04/21/18 07:00 MCV 84.8 fl (80-96) 04/21/18 07:00 MCH 27.5 pg (25.7-33.7) 04/21/18 07:00 MCHC 32.5 g/dl (32.0-35.9) 04/21/18 07:00 RDW 24.3 % (11.9-15.9) H 04/21/18 07:00 Plt Count 271 K/MM3 (134-434) 04/21/18 07:00 MPV 8.0 fl (7.5-11.1) 04/21/18 07:00 PT with INR 40.90 SEC (9.7-13.0) H 04/21/18 07:00 INR 3.42 (0.83-1.09) H 04/21/18 07:00 Sodium 141 mmol/L (136-145) 04/21/18 07:00 Potassium 4.2 mmol/L (3.5-5.1) 04/21/18 07:00 Chloride 107 mmol/L (98-107) 04/21/18 07:00 Carbon Dioxide 28 mmol/L (21-32) 04/21/18 07:00 Anion Gap 6 MMOL/L (8-16) L 04/21/18 07:00 BUN 16 mg/dL (7-18) 04/21/18 07:00 Creatinine 0.7 mg/dL (0.55-1.3) 04/21/18 07:00 Creat Clearance w eGFR > 60 (>60) 04/21/18 07:00 POC Glucometer 93 UNITS (80-120) 04/21/18 16:31 Random Glucose 92 mg/dL (74-106) 04/21/18 07:00 Calcium 7.9 mg/dL (8.5-10.1) L 04/21/18 07:00 Total Bilirubin 0.3 mg/dL (0.2-1) 04/21/18 07:00 AST 12 U/L (15-37) L 04/21/18 07:00 ALT 17 U/L (13-61) 04/21/18 07:00 Alkaline Phosphatase 138 U/L (45-117) H 04/21/18 07:00 Total Protein 6.3 g/dl (6.4-8.2) L 04/21/18 07:00 Albumin 2.9 g/dl (3.4-5.0) L 04/21/18 07:00 Urine Color Maryjane 04/20/18 14:15 Urine Appearance Clear 04/20/18 14:15 Urine pH 5.0 (5.0-8.0) 04/20/18 14:15 Ur Specific [place] 1.029 (1.010-1.035) 04/20/18 14:15 Urine Protein 2+ (NEGATIVE) H 04/20/18 14:15 Urine Glucose (UA) Negative (NEGATIVE) 04/20/18 14:15 Urine Ketones Negative (NEGATIVE) 04/20/18 14:15 Urine Blood Negative (NEGATIVE) 04/20/18 14:15 Urine Nitrite Negative (NEGATIVE) 04/20/18 14:15 Urine Bilirubin Negative (<2.0 mg/dL) 04/20/18 14:15 Urine Urobilinogen 2.0 mg/dL (0.2-1.0) 04/20/18 14:15 Ur Leukocyte Esterase Negative (NEGATIVE) 04/20/18 14:15 Urine WBC (Auto) 1 /hpf (3-5) 04/20/18 14:15 Urine RBC (Auto) 20 /hpf (0-3) 04/20/18 14:15 Ur Epithelial Cells Rare /HPF (FEW) 04/20/18 14:15 Urine Mucus Rare 04/20/18 14:15 Digoxin 0.64 ng/ml (0.8-2.0) L 04/21/18 07:00 RPR Titer Nonreactive (NONREACTIVE) 04/21/18 07:00 Labs noted Assessment: 04/23/18 12:03 Resolving withdrawal sx Plan: Continue detox
[2018-04-23] MEDS: WARFARIN NA 3 MG TABLET PO SCH (17:20)
[2018-04-23] MEDS: ALBUTEROL SO4 2.5/IPRATROPIUM 0.5 INH SOL 3 ML VIAL.NEB. NEB PRN (19:05)
[2018-04-23 22:00] VITALS: TEMP 98.4
[2018-04-23] MEDS: ALBUTEROL SO4 8 GM HFA INHALER IH PRN (22:13)
[2018-04-23] MEDS: QUEtiapine FUMARATE 300 MG TABLET PO SCH (22:14)
[2018-04-23] MEDS: MIRTAZAPINE 30 MG TABLET (FP) PO SCH (22:14)
[2018-04-23] MEDS: THIAMINE HCL 100 MG TABLET (FP) PO SCH (22:15)
[2018-04-23] MEDS: ACETAMINOPHEN 325 MG TABLET (FP) PO PRN (22:15)
[2018-04-23] MEDS: DIGOXIN 0.125 MG TABLET (FP) PO SCH (22:15)
[2018-04-24] MEDS: GABAPENTIN 300 MG CAPSULE (FP) PO SCH (07:01)
[2018-04-24 09:43] VITALS: BP 122/78; PULSE 86
[2018-04-24] MEDS: PANTOPRAZOLE 40 MG TABLET (FP) PO SCH (10:07)
[2018-04-24] MEDS: predniSONE 10 MG TABLET (UD) PO SCH (10:07)
[2018-04-24] MEDS: BUDESONIDE/FORMETEROL FUMARATE 160/4.5 mcg INHALER IH SCH (10:07)
[2018-04-24] MEDS: LISINOPRIL 20 MG TABLET (FP) PO SCH (10:07)
[2018-04-24] MEDS: guaiFENesin 600 MG TABLET.ER (FP) PO SCH (10:07)
[2018-04-24] MEDS: TIOTROPIUM BROMIDE 2.5 MCG (SPIRIVA) RESPIMAT INHALER IH SCH (10:07)
[2018-04-24] MEDS: NICOTINE 14 MG/24 HOURS TOPICAL PATCH TD SCH (10:08)
--- NOTE | 2018-04-24 12:24 | DS ---
[facility] Detox Discharge Summary Admission Date: 04/20/18 Discharge Date: 04/24/18 - History Present History: Cocaine Dependence, Opioid Dependence Additional Comments: Patient medically stable. Follow up with Primary care. Follow up with rehab at [facility]. - Physical Exam Results Vital Signs: Vital Signs Temperature 98.4 F 04/24/18 09:42 Pulse Rate 86 04/24/18 09:42 Respiratory Rate 16 04/24/18 09:42 Blood Pressure 122/78 04/24/18 09:42 O2 Sat by Pulse Oximetry (%) Pertinent Admission Physical Exam Findings: Vital Signs Temperature 98.4 F 04/24/18 09:42 Pulse Rate 86 04/24/18 09:42 Respiratory Rate 16 04/24/18 09:42 Blood Pressure 122/78 04/24/18 09:42 O2 Sat by Pulse Oximetry (%) Laboratory Last Values WBC 10.5 K/mm3 (4.0-10.0) H 04/21/18 07:00 RBC 3.80 M/mm3 (4.00-5.60) L 04/21/18 07:00 Hgb 10.5 GM/dL (11.7-16.9) L 04/21/18 07:00 Hct 32.2 % (35.4-49) L D 04/21/18 07:00 MCV 84.8 fl (80-96) 04/21/18 07:00 MCH 27.5 pg (25.7-33.7) 04/21/18 07:00 MCHC 32.5 g/dl (32.0-35.9) 04/21/18 07:00 RDW 24.3 % (11.9-15.9) H 04/21/18 07:00 Plt Count 271 K/MM3 (134-434) 04/21/18 07:00 MPV 8.0 fl (7.5-11.1) 04/21/18 07:00 PT with INR 40.90 SEC (9.7-13.0) H 04/21/18 07:00 INR 3.42 (0.83-1.09) H 04/21/18 07:00 Sodium 141 mmol/L (136-145) 04/21/18 07:00 Potassium 4.2 mmol/L (3.5-5.1) 04/21/18 07:00 Chloride 107 mmol/L (98-107) 04/21/18 07:00 Carbon Dioxide 28 mmol/L (21-32) 04/21/18 07:00 Anion Gap 6 MMOL/L (8-16) L 04/21/18 07:00 BUN 16 mg/dL (7-18) 04/21/18 07:00 Creatinine 0.7 mg/dL (0.55-1.3) 04/21/18 07:00 Creat Clearance w eGFR > 60 (>60) 04/21/18 07:00 POC Glucometer 93 UNITS (80-120) 04/21/18 16:31 Random Glucose 92 mg/dL (74-106) 04/21/18 07:00 Calcium 7.9 mg/dL (8.5-10.1) L 04/21/18 07:00 Total Bilirubin 0.3 mg/dL (0.2-1) 04/21/18 07:00 AST 12 U/L (15-37) L 04/21/18 07:00 ALT 17 U/L (13-61) 04/21/18 07:00 Alkaline Phosphatase 138 U/L (45-117) H 04/21/18 07:00 Total Protein 6.3 g/dl (6.4-8.2) L 04/21/18 07:00 Albumin 2.9 g/dl (3.4-5.0) L 04/21/18 07:00 Urine Color Maryjane 04/20/18 14:15 Urine Appearance Clear 04/20/18 14:15 Urine pH 5.0 (5.0-8.0) 04/20/18 14:15 Ur Specific [place] 1.029 (1.010-1.035) 04/20/18 14:15 Urine Protein 2+ (NEGATIVE) H 04/20/18 14:15 Urine Glucose (UA) Negative (NEGATIVE) 04/20/18 14:15 Urine Ketones Negative (NEGATIVE) 04/20/18 14:15 Urine Blood Negative (NEGATIVE) 04/20/18 14:15 Urine Nitrite Negative (NEGATIVE) 04/20/18 14:15 Urine Bilirubin Negative (<2.0 mg/dL) 04/20/18 14:15 Urine Urobilinogen 2.0 mg/dL (0.2-1.0) 04/20/18 14:15 Ur Leukocyte Esterase Negative (NEGATIVE) 04/20/18 14:15 Urine WBC (Auto) 1 /hpf (3-5) 04/20/18 14:15 Urine RBC (Auto) 20 /hpf (0-3) 04/20/18 14:15 Ur Epithelial Cells Rare /HPF (FEW) 04/20/18 14:15 Urine Mucus Rare 04/20/18 14:15 Digoxin 0.64 ng/ml (0.8-2.0) L 04/21/18 07:00 RPR Titer Nonreactive (NONREACTIVE) 04/21/18 07:00 - Treatment Hospital Course: Detox Protocol Followed, Detoxed Safely, Responded well, Discharged Condition Good, Rehab Referral Accepted Patient has Accepted a Rehab Referral to: [facility] - Medication Discharge Medications: Ambulatory Orders Warfarin Sodium [Coumadin] 3 mg PO DAILY 08/20/16 Digoxin [Lanoxin -] 0.125 mg PO HS #30 tab 09/02/16 Mirtazapine [Remeron -] 30 mg PO HS #30 tablet 09/02/16 Pantoprazole Sodium [Protonix -] 40 mg PO DAILY #30 tab 09/02/16 Quetiapine Fumarate [Seroquel -] 300 mg PO HS #30 tablet 09/02/16 Budesonide/Formeterol Fumarate [SYMBICORT 160/4.5mcg -] 1 inh PO BID 04/20/18 Diltiazem HCl [Diltiazem 24Hr ER] 240 mg PO HS 04/20/18 Gabapentin [Neurontin -] 300 mg PO TID 04/20/18 Lisinopril [Prinivil] 40 mg PO DAILY 04/20/18 Methotrexate [Mexate -] 1 tablet PO Q2D 04/20/18 Metoprolol Succinate [Toprol Xl] 200 mg PO HS 04/20/18 Prednisone 10 mg PO DAILY 04/20/18 Warfarin Na [Coumadin -] 5 mg PO DAILY@1800 04/20/18 - Diagnosis (1) Opioid dependence with withdrawal Current Visit: Yes Status: Acute (2) Atrial fibrillation Current Visit: Yes Status: Chronic Qualifiers: Atrial fibrillation type: unspecified Qualified Code(s): I48.91 - Unspecified atrial fibrillation (3) COPD (chronic obstructive pulmonary disease) Current Visit: Yes Status: Chronic Qualifiers: Chronic bronchitis type: unspecified (4) Cardiomyopathy Current Visit: Yes Status: Chronic Qualifiers: Cardiomyopathy type: unspecified Qualified Code(s): I42.9 - Cardiomyopathy , unspecified (5) Cocaine dependence Current Visit: Yes Status: Chronic Qualifiers: Substance use status: uncomplicated Qualified Code(s): F14.20 - Cocaine dependence, uncomplicated (6) GERD (gastroesophageal reflux disease) Current Visit: Yes Status: Chronic Qualifiers: Esophagitis presence: without esophagitis Qualified Code(s): K21.9 - Gastro -esophageal reflux disease without esophagitis (7) Hypertension Current Visit: Yes Status: Chronic Qualifiers: Hypertension type: essential hypertension Qualified Code(s): I10 - Essential (primary) hypertension (8) Neuropathy Current Visit: Yes Status: Chronic (9) Nicotine dependence Current Visit: Yes Status: Chronic Qualifiers: Nicotine product type: cigarettes Substance use status: uncomplicated Qualified Code(s): F17.210 - Nicotine dependence, cigarettes, uncomplicated (10) Left ear hearing loss Current Visit: No Status: Chronic Qualifiers: Hearing loss type: unspecified Qualified Code(s): H91.92 - Unspecified hearing loss, left ear - AMA Did Patient Leave Against Medical Advice: No
== END 2018-04-24 13:02 | disposition other institution (70) | DRG 773 ==
LOC: YASAS 13:21 → Y6N 20:46
PROVIDERS: ADMIT Surgery; ATTEND Surgery
PROC: HZ2ZZZZ Detoxification Services for Substance Abuse Treatment (ICD-10-PCS; principal; 2018-04-20)
DX: F11.23 Opioid dependence with withdrawal (principal); F14.20 Cocaine dependence, uncomplicated; F17.210 Nicotine dependence, cigarettes, uncomplicated; F33.1 Major depressive disorder, recurrent, moderate; F19.280 Other psychoactive substance dependence with psychoactive substance-induced anxiety disorder; F19.282 Other psychoactive substance dependence with psychoactive substance-induced sleep disorder; G62.9 Polyneuropathy, unspecified; H91.92 Unspecified hearing loss, left ear; I10 Essential (primary) hypertension; I48.91 Unspecified atrial fibrillation; I42.9 Cardiomyopathy, unspecified; J44.9 Chronic obstructive pulmonary disease, unspecified; Z79.01 Long term (current) use of anticoagulants; Z91.5 Personal history of self-harm
CPT/HCPCS: 36415; 80053; 80162; 81003; 81015; 82962; 85027; 85610; 86593; 93005; 93010; 94640; J8610

== ENCOUNTER 2018-04-24 13:17 | Inpatient (IN) | payer OTHER ==
--- NOTE | 2018-04-24 14:38 | HP ---
[facility] Rehab Assess/Revision - Admission History Admitted to Rehab from: [facility] Date of Admission to Rehab: 04/24/18 - Vital signs Vital Signs: Vital Signs Period Temp Pulse Resp BP Sys/Boyd Pulse Ox Last 24 Hr 98.3 F 93 18 157/84 - Findings Detox History & Physical reviewed: Yes Concur with findings: Yes Inpatient Rehab Admission - Rehab Decision to Admit Inpatient rehab admission?: Yes - Initial Determination Are CD services needed?: Yes Free of communicable disease: Yes Not in need of hospitalization: Yes - Rehab Admission Criteria Previous failed treatment: Yes Poor recovery environment: Yes Comorbidities: Yes Lacks judgement: Yes Patient is meeting Inpatient Rehab admission criteria:: Yes
[2018-04-24] MEDS ORDERED: MAG HYDROX/AL HYDROX/SIMETH 30 ML UNIT-DOSE CUP PO PRN (14:40)
[2018-04-24] MEDS ORDERED: MENTHOL/PHENOL 1 EACH UD MM PRN (14:40)
[2018-04-24] MEDS ORDERED: MAGNESIUM HYDROX 2400MG/30ML ORAL SUSPENSION 30 ML CUP PO PRN (14:40)
[2018-04-24] MEDS ORDERED: P-EPHED 60MG/TRIPROLIDI 2.5MG TABLET PO PRN (14:40)
[2018-04-24] MEDS ORDERED: MAGNESIUM CITRATE 300 ML BOTTLE PO PRN (14:40)
[2018-04-24] MEDS ORDERED: LOPERAMIDE HCL 2 MG CAPSULE PO PRN (14:40)
[2018-04-24] MEDS ORDERED: WARFARIN NA 2 MG TABLET (UD) PO SCH (18:00)
[2018-04-24] MEDS: guaiFENesin 200 MG/10 ML 10 ML UNIT-DOSE CUPS PO PRN (18:01)
--- NOTE | 2018-04-24 18:01 | PN ---
[facility] Progress Note Note: called to evaluate the patient patient stated hearing the noice form implanted defribilllator several time, last 4.30 pm,lasted for 5 second no chest pain,no sob,no dizziness patient had implanted defribrillator changed on december at [facility] seen by gravure printing machinist Dr Almonte 2 weeks ago,stated everything is fine chronic atrial fibriilation since 2009 alet, no chest pain,nosob heart irregular rate 96 no abdominal pain no calf tenderness ekg atrial fibrillation rate 97/min impression chronic atrial fibrillation s/p implanted defibrillator hypertension history of pulmonary embolism history of opioid dependence impression r/o malfunctioning implanted defibrillator patient did not want to go to er for evaluation,stated he is fine,signed release ama,risk and benefit explained to patient,including sudden ,patient understood
--- NOTE | 2018-04-24 21:03 | PN ---
[facility] Progress Note Note: Patient with history of AFIB has a malfunctioned defribillator that has been making noise. He was seen by Dr. Araujo and he refused to go to emergency room as advised earlier today. Patient had signed the refusal of treatment form. The noise from the defribillator persists. Patient reports that he was seen by a cell technician Dr. Almonte 2 weeks ago and the defribillator was last changed in 2015. He denies SOB, Chest pain, palpitations. Stat EKG indicates AFIB which was diagnosed in 2009. He is admitted to Rehab with a history of opioid dependence. He is complaining of dizziness and appears very anxious. V/s B/P 185 /103, HR 118. Vital Signs Temperature 98.2 F 04/24/18 21:17 Pulse Rate 118 H 04/24/18 21:17 Respiratory Rate 18 04/24/18 21:17 Blood Pressure 185/103 H 04/24/18 21:17 O2 Sat by Pulse Oximetry (%) Action: Patient is being transferred to ER for further evaluation. Endorsed to Dr. Patrick.
[2018-04-24] MEDS: BUDESONIDE/FORMETEROL FUMARATE 160/4.5 mcg INHALER IH SCH (21:05)
[2018-04-24] MEDS: GABAPENTIN 300 MG CAPSULE (FP) PO SCH (21:06)
[2018-04-24] MEDS: DIGOXIN 0.125 MG TABLET (FP) PO SCH (21:06)
[2018-04-24] MEDS: THIAMINE HCL 100 MG TABLET (FP) PO SCH (21:08)
[2018-04-25] MEDS ORDERED: cloNIDine HCL 0.1 MG TABLET PO ONE (02:08)
[2018-04-25] MEDS: guaiFENesin 200 MG/10 ML 10 ML UNIT-DOSE CUPS PO PRN ×2 (02:14→10:09)
[2018-04-25] MEDS: MELATONIN 5 MG TABLETS PO PRN (02:14)
[2018-04-25] MEDS: ACETAMINOPHEN 325 MG TABLET (FP) PO PRN (02:15)
--- NOTE | 2018-04-25 06:38 | CONSULT ---
[facility] Psychiatric Consult - Data Date of interview: 04/25/18 Admission source: 6N Identifying data: Mr Vela is a 62 years old male, father of 3 children, unemployed receiving SSI, homeless seeking inpatient rehab treatment for opioid Substance Abuse History: Reports history of opioid use. He started using heroin at age 20, consumes 7 bags daily. Lasy used on 04/19/18. Refer to care management specialist's summary for further information Medical History: Significant for COPD, hypertension, dyslipidemia, AFib, history of surgery for implation of defibrillator in 2014 and bilateral inguinal hernia repair as a child. Smokes 10 cigarettes daily Psychiatric History: Patient is well known to scenario writer from a recent encounter on 04/21/18 while in detox. He reports that he has been depressed all his life but depression worsened after the of his in 2014. Reports 4 previous psychiatric hospitalizations and 2 suicidal attempts(hanging & shooting). Most recent psychiatric admission was early 2018 to [facility] for 2 weeks for depression. No current OPD treatment but prescribed Seroquel 300 mg po HS and Remeron [address] Bang, his primary care physician. Above verified by external medication search(filled scripts for 30 days supply of Seroquel 300 mg Hs & Remeron 30 mg HS at [facility] on 04/16). Patient was continued on his medications when seen by scenario writer on 04/21/18. At present, reports feeling anxious and sleeping poorly Physical/Sexual Abuse/Trauma History: Denies history of emotional, physical or sexual abuse as well as DV relationship. No service Additional Comment: Reports history of multiple previous arrests including 2 felony convictions for DWI. No parole/probation Mental Status Exam - Mental Status Exam Alert and Oriented to: Time, Place, Person Cognitive Function: Fair Patient Appearance: Disheveled Mood: Hopeful, Euthymic Affect: Appropriate Patient Behavior: Cooperative Speech Pattern: Clear Voice Loudness: Normal Thought Process: Intact, Goal Oriented Thought Disorder: Not Present Hallucinations: Denies Suicidal Ideation: Denies Homicidal Ideation: Denies Insight/Judgement: Fair Sleep: Poorly Appetite: Good Muscle strength/Tone: Normal Gait/Station: Normal Psychiatric Findings - Problem List (Daniels 1, 2,3) (1) MDD (major depressive disorder), recurrent episode, moderate Current Visit: No Status: Chronic (2) Substance-induced sleep disorder Current Visit: No Status: Acute (3) Opioid dependence Current Visit: Yes Status: Acute (4) Nicotine dependence Current Visit: No Status: Chronic Qualifiers: Nicotine product type: cigarettes Substance use status: uncomplicated Qualified Code(s): F17.210 - Nicotine dependence, cigarettes, uncomplicated (5) COPD (chronic obstructive pulmonary disease) Current Visit: No Status: Chronic Qualifiers: Chronic bronchitis type: unspecified (6) GERD (gastroesophageal reflux disease) Current Visit: No Status: Chronic Qualifiers: Esophagitis presence: without esophagitis Qualified Code(s): K21.9 - Gastro -esophageal reflux disease without esophagitis (7) Hypertension Current Visit: No Status: Chronic Qualifiers: Hypertension type: essential hypertension Qualified Code(s): I10 - Essential (primary) hypertension (8) Atrial fibrillation Current Visit: No Status: Chronic Qualifiers: Atrial fibrillation type: unspecified Qualified Code(s): I48.91 - Unspecified atrial fibrillation Comment: has an inplant (pacemaker and defibrillator) (9) Neuropathy Current Visit: No Status: Chronic - Initial Treatment Plan Initial Treatment Plan: 1) Continue Seroquel 300 mg po HS and Remeron 30 mg po HS. 2) Continue inpatient rehabilitation
[2018-04-25] MEDS: GABAPENTIN 300 MG CAPSULE (FP) PO SCH ×3 (07:02→21:11)
[2018-04-25] MEDS ORDERED: PT OWN MED DRAWER 7, Y5N ONE ×2 (08:46→19:39)
[2018-04-25] MEDS ORDERED: LISINOPRIL 20 MG TABLET (FP) PO SCH (10:00)
[2018-04-25] MEDS: PANTOPRAZOLE 40 MG TABLET (FP) PO SCH (10:07)
[2018-04-25] MEDS: PRENATAL VITAMINS W/ FOLIC ACID TABLET (FP) PO SCH (10:07)
[2018-04-25] MEDS: BUDESONIDE/FORMETEROL FUMARATE 160/4.5 mcg INHALER IH SCH ×2 (10:08→21:13)
[2018-04-25] MEDS: predniSONE 10 MG TABLET (UD) PO SCH (10:08)
[2018-04-25 10:23] LABS: INR 3.84 (0.83-1.09); PROTHROMBIN TIME (PATIENT) 45.9 SEC (9.7-13.0)
--- NOTE | 2018-04-25 10:38 | PN ---
[facility] Progress Note Note: Laboratory Results - last 24 hr 04/25/18 04/25/18 08:15 08:15 PT with INR 45.90 H INR 3.84 H Digoxin 0.61 L LABS APPRECIATED. WILL COUMADIN X 48 HOURS. CONTINUE SAME DOSE OF DIGOXIN. WILL REPEAT PT/INR AND DIGOXIN LEVEL ON 04/27/18.
[2018-04-25] MEDS: METHOTREXATE 2.5 MG PO SCH (12:00)
[2018-04-25] MEDS: TIOTROPIUM BROMIDE 2.5 MCG (SPIRIVA) RESPIMAT INHALER IH SCH (13:01)
[2018-04-25] MEDS ORDERED: WARFARIN NA 3 MG TABLET PO SCH (18:00)
[2018-04-25] MEDS: THIAMINE HCL 100 MG TABLET (FP) PO SCH (21:10)
[2018-04-25] MEDS: DIGOXIN 0.125 MG TABLET (FP) PO SCH (21:11)
[2018-04-25] MEDS: LISINOPRIL 20 MG TABLET (FP) PO SCH (21:11)
--- NOTE | 2018-04-25 22:53 | EKG ---
Test Reason : Blood Pressure : / mmHG Vent. Rate : 097 BPM Atrial Rate : 097 BPM P-R Int : 000 ms QRS Dur : 084 ms QT Int : 372 ms P-R-T Axes : 000 -13 006 degrees QTc Int : 472 ms ATRIAL FIBRILLATION ABNORMAL ECG WHEN COMPARED WITH ECG OF 20-APR-2018 19:58, QT HAS LENGTHENED Confirmed by JACKI SMITH MD ([id number]) on 04/25/2018 10:52:47 PM Referred By: Confirmed By:JACKI SMITH MD
[2018-04-26] MEDS: GABAPENTIN 300 MG CAPSULE (FP) PO SCH ×3 (06:03→21:05)
[2018-04-26] MEDS: guaiFENesin 200 MG/10 ML 10 ML UNIT-DOSE CUPS PO PRN (06:04)
[2018-04-26] MEDS ORDERED: PT OWN MED DRAWER 7, Y5N ONE (08:54)
[2018-04-26] MEDS ORDERED: METHOTREXATE 2.5 MG TABLET PO SCH (10:00)
[2018-04-26] MEDS: PRENATAL VITAMINS W/ FOLIC ACID TABLET (FP) PO SCH (10:37)
[2018-04-26] MEDS: PANTOPRAZOLE 40 MG TABLET (FP) PO SCH (10:37)
[2018-04-26] MEDS: predniSONE 10 MG TABLET (UD) PO SCH (10:38)
[2018-04-26] MEDS: LISINOPRIL 20 MG TABLET (FP) PO SCH (10:38)
[2018-04-26] MEDS: TIOTROPIUM BROMIDE 2.5 MCG (SPIRIVA) RESPIMAT INHALER IH SCH (10:39)
[2018-04-26] MEDS: BUDESONIDE/FORMETEROL FUMARATE 160/4.5 mcg INHALER IH SCH ×2 (10:40→21:07)
[2018-04-26] MEDS: MELATONIN 5 MG TABLETS PO PRN (21:04)
[2018-04-26] MEDS: THIAMINE HCL 100 MG TABLET (FP) PO SCH (21:04)
[2018-04-26] MEDS: MIRTAZAPINE 30 MG TABLET (FP) PO SCH (21:05)
[2018-04-26] MEDS: DIGOXIN 0.125 MG TABLET (FP) PO SCH (21:05)
[2018-04-26] MEDS: QUEtiapine FUMARATE 300 MG TABLET PO SCH (21:06)
[2018-04-26] MEDS: ACETAMINOPHEN 325 MG TABLET (FP) PO PRN (23:09)
[2018-04-27] MEDS: GABAPENTIN 300 MG CAPSULE (FP) PO SCH ×3 (06:44→21:04)
[2018-04-27] MEDS ORDERED: PT OWN MED DRAWER 7, Y5N ONE ×3 (08:47→19:38)
[2018-04-27] MEDS: PRENATAL VITAMINS W/ FOLIC ACID TABLET (FP) PO SCH (10:19)
[2018-04-27] MEDS: METHOTREXATE 2.5 MG PO SCH (10:19)
[2018-04-27] MEDS: PANTOPRAZOLE 40 MG TABLET (FP) PO SCH (10:19)
[2018-04-27] MEDS: predniSONE 10 MG TABLET (UD) PO SCH (10:19)
[2018-04-27] MEDS: LISINOPRIL 20 MG TABLET (FP) PO SCH (10:19)
[2018-04-27] MEDS: BUDESONIDE/FORMETEROL FUMARATE 160/4.5 mcg INHALER IH SCH ×2 (10:21→21:02)
[2018-04-27] MEDS: TIOTROPIUM BROMIDE 2.5 MCG (SPIRIVA) RESPIMAT INHALER IH SCH (10:21)
[2018-04-27 11:14] LABS: INR 1.94 (0.83-1.09); PROTHROMBIN TIME (PATIENT) 23.1 SEC (9.7-13.0)
--- NOTE | 2018-04-27 16:05 | PN ---
[facility] Progress Note Note: Patient's coumadin was held because it was 3.84. Now, it is 1.94. Coumadin 3mg ordered. Will order INR for 04/29/2018 Laboratory 04/25/18 04/25/18 04/27/18 08:15 08:15 07:45 PT with INR 45.90 SEC H SEC 23.10 SEC H SEC (9.7-13.0) (9.7-13.0) INR 3.84 H 1.94 H (0.83-1.09) (0.83-1.09) Digoxin 0.61 ng/ml L ng/ml (0.8-2.0) 04/27/18 07:45 PT with INR INR Digoxin 0.53 ng/ml L ng/ml (0.8-2.0)
[2018-04-27] MEDS: WARFARIN NA 3 MG TABLET PO SCH (17:55)
[2018-04-27] MEDS: MIRTAZAPINE 30 MG TABLET (FP) PO SCH (21:04)
[2018-04-27] MEDS: MELATONIN 5 MG TABLETS PO PRN (21:04)
[2018-04-27] MEDS: DIGOXIN 0.125 MG TABLET (FP) PO SCH (21:04)
[2018-04-27] MEDS: QUEtiapine FUMARATE 300 MG TABLET PO SCH (21:04)
[2018-04-27] MEDS: ACETAMINOPHEN 325 MG TABLET (FP) PO PRN (21:05)
[2018-04-27] MEDS: THIAMINE HCL 100 MG TABLET (FP) PO SCH (21:07)
[2018-04-28] MEDS: GABAPENTIN 300 MG CAPSULE (FP) PO SCH ×3 (06:03→21:31)
[2018-04-28] MEDS: predniSONE 10 MG TABLET (UD) PO SCH (10:05)
[2018-04-28] MEDS: PANTOPRAZOLE 40 MG TABLET (FP) PO SCH (10:05)
[2018-04-28] MEDS: LISINOPRIL 20 MG TABLET (FP) PO SCH (10:05)
[2018-04-28] MEDS: PRENATAL VITAMINS W/ FOLIC ACID TABLET (FP) PO SCH (10:05)
[2018-04-28] MEDS: BUDESONIDE/FORMETEROL FUMARATE 160/4.5 mcg INHALER IH SCH ×2 (10:06→21:30)
[2018-04-28] MEDS: TIOTROPIUM BROMIDE 2.5 MCG (SPIRIVA) RESPIMAT INHALER IH SCH (10:08)
[2018-04-28] MEDS: NICOTINE 14 MG/24 HOURS TOPICAL PATCH TD SCH (10:25)
[2018-04-28] MEDS ORDERED: NICOTINE POLACRILEX 2 MG GUM BUC PRN (10:41)
[2018-04-28] MEDS: WARFARIN NA 3 MG TABLET PO SCH (17:06)
[2018-04-28] MEDS: THIAMINE HCL 100 MG TABLET (FP) PO SCH (21:30)
[2018-04-28] MEDS: MIRTAZAPINE 30 MG TABLET (FP) PO SCH (21:31)
[2018-04-28] MEDS: MELATONIN 5 MG TABLETS PO PRN (21:31)
[2018-04-28] MEDS: DIGOXIN 0.125 MG TABLET (FP) PO SCH (21:31)
[2018-04-28] MEDS: QUEtiapine FUMARATE 300 MG TABLET PO SCH (21:31)
[2018-04-28] MEDS: ACETAMINOPHEN 325 MG TABLET (FP) PO PRN (21:33)
[2018-04-29] MEDS: GABAPENTIN 300 MG CAPSULE (FP) PO SCH ×3 (06:22→21:28)
[2018-04-29] MEDS ORDERED: PT OWN MED DRAWER 7, Y5N ONE ×3 (08:38→20:02)
[2018-04-29] MEDS: METHOTREXATE 2.5 MG PO SCH (10:54)
[2018-04-29] MEDS: PANTOPRAZOLE 40 MG TABLET (FP) PO SCH (10:54)
[2018-04-29] MEDS: PRENATAL VITAMINS W/ FOLIC ACID TABLET (FP) PO SCH (10:54)
[2018-04-29] MEDS: LISINOPRIL 20 MG TABLET (FP) PO SCH (10:54)
[2018-04-29] MEDS: NICOTINE 14 MG/24 HOURS TOPICAL PATCH TD SCH (10:54)
[2018-04-29] MEDS: BUDESONIDE/FORMETEROL FUMARATE 160/4.5 mcg INHALER IH SCH ×2 (10:55→21:30)
[2018-04-29] MEDS: TIOTROPIUM BROMIDE 2.5 MCG (SPIRIVA) RESPIMAT INHALER IH SCH (10:55)
[2018-04-29] MEDS: predniSONE 10 MG TABLET (UD) PO SCH (10:55)
[2018-04-29] MEDS: WARFARIN NA 3 MG TABLET PO SCH (17:17)
[2018-04-29] MEDS: THIAMINE HCL 100 MG TABLET (FP) PO SCH (21:26)
[2018-04-29] MEDS: MIRTAZAPINE 30 MG TABLET (FP) PO SCH (21:27)
[2018-04-29] MEDS: DIGOXIN 0.125 MG TABLET (FP) PO SCH (21:27)
[2018-04-29] MEDS: QUEtiapine FUMARATE 300 MG TABLET PO SCH (21:27)
[2018-04-29] MEDS: ACETAMINOPHEN 325 MG TABLET (FP) PO PRN (21:28)
[2018-04-30] MEDS: ACETAMINOPHEN 325 MG TABLET (FP) PO PRN ×2 (01:37→21:24)
[2018-04-30] MEDS: GABAPENTIN 300 MG CAPSULE (FP) PO SCH ×3 (06:15→15:21)
[2018-04-30] MEDS: NICOTINE 14 MG/24 HOURS TOPICAL PATCH TD SCH (09:46)
[2018-04-30] MEDS: BUDESONIDE/FORMETEROL FUMARATE 160/4.5 mcg INHALER IH SCH ×2 (09:46→21:23)
[2018-04-30] MEDS: TIOTROPIUM BROMIDE 2.5 MCG (SPIRIVA) RESPIMAT INHALER IH SCH (09:47)
[2018-04-30] MEDS: PANTOPRAZOLE 40 MG TABLET (FP) PO SCH (09:47)
[2018-04-30] MEDS: predniSONE 10 MG TABLET (UD) PO SCH (09:47)
[2018-04-30] MEDS: PRENATAL VITAMINS W/ FOLIC ACID TABLET (FP) PO SCH (09:47)
[2018-04-30] MEDS: LISINOPRIL 20 MG TABLET (FP) PO SCH (09:47)
[2018-04-30] MEDS: WARFARIN NA 3 MG TABLET PO SCH (17:29)
[2018-04-30] MEDS: THIAMINE HCL 100 MG TABLET (FP) PO SCH (21:21)
[2018-04-30] MEDS: DIGOXIN 0.125 MG TABLET (FP) PO SCH (21:22)
[2018-04-30] MEDS: MIRTAZAPINE 30 MG TABLET (FP) PO SCH (21:22)
[2018-04-30] MEDS: MELATONIN 5 MG TABLETS PO PRN (21:22)
[2018-04-30] MEDS: GABAPENTIN 400 MG CAPSULE (FP) PO SCH (21:23)
[2018-04-30] MEDS: QUEtiapine FUMARATE 300 MG TABLET PO SCH (21:24)
[2018-05-01] MEDS: GABAPENTIN 400 MG CAPSULE (FP) PO SCH ×3 (06:11→21:31)
[2018-05-01] MEDS: METHOTREXATE 2.5 MG PO SCH (10:59)
[2018-05-01] MEDS: BUDESONIDE/FORMETEROL FUMARATE 160/4.5 mcg INHALER IH SCH ×2 (10:59→21:32)
[2018-05-01] MEDS: PANTOPRAZOLE 40 MG TABLET (FP) PO SCH (10:59)
[2018-05-01] MEDS: LISINOPRIL 20 MG TABLET (FP) PO SCH (10:59)
[2018-05-01] MEDS: TIOTROPIUM BROMIDE 2.5 MCG (SPIRIVA) RESPIMAT INHALER IH SCH (10:59)
[2018-05-01] MEDS: NICOTINE 14 MG/24 HOURS TOPICAL PATCH TD SCH (10:59)
[2018-05-01] MEDS: predniSONE 10 MG TABLET (UD) PO SCH (10:59)
[2018-05-01] MEDS: PRENATAL VITAMINS W/ FOLIC ACID TABLET (FP) PO SCH (10:59)
[2018-05-01] MEDS: WARFARIN NA 3 MG TABLET PO SCH (17:38)
[2018-05-01] MEDS: THIAMINE HCL 100 MG TABLET (FP) PO SCH (21:22)
[2018-05-01] MEDS: DIGOXIN 0.125 MG TABLET (FP) PO SCH (21:31)
[2018-05-01] MEDS: MELATONIN 5 MG TABLETS PO PRN (21:31)
[2018-05-01] MEDS: MIRTAZAPINE 30 MG TABLET (FP) PO SCH (21:31)
[2018-05-01] MEDS: QUEtiapine FUMARATE 300 MG TABLET PO SCH (21:32)
[2018-05-01] MEDS: ACETAMINOPHEN 325 MG TABLET (FP) PO PRN (21:34)
[2018-05-01] MEDS ORDERED: cloNIDine HCL 0.1 MG TABLET PO ONE (22:41)
--- NOTE | 2018-05-01 22:51 | PN ---
S Progress Note Note: Pastient's blood pressure is B/P 162/100. Patient is asymptomatic Vital Signs Temperature 97.7 F 05/01/18 06:29 Pulse Rate 105 H 05/01/18 21:31 Respiratory Rate 18 05/01/18 21:26 Blood Pressure 162/100 05/01/18 21:26 O2 Sat by Pulse Oximetry (%) Action: Clonidine 0.1mg tablet 1 tablet oral ordered
[2018-05-02] MEDS: GABAPENTIN 400 MG CAPSULE (FP) PO SCH ×3 (06:13→21:49)
[2018-05-02] MEDS ORDERED: PT OWN MED DRAWER 7, Y5N ONE ×2 (08:33→19:23)
[2018-05-02] MEDS: LISINOPRIL 20 MG TABLET (FP) PO SCH (10:48)
[2018-05-02] MEDS: predniSONE 10 MG TABLET (UD) PO SCH (10:48)
[2018-05-02] MEDS: PANTOPRAZOLE 40 MG TABLET (FP) PO SCH (10:48)
[2018-05-02] MEDS: NICOTINE 14 MG/24 HOURS TOPICAL PATCH TD SCH (10:48)
[2018-05-02] MEDS: PRENATAL VITAMINS W/ FOLIC ACID TABLET (FP) PO SCH (10:48)
[2018-05-02] MEDS: BUDESONIDE/FORMETEROL FUMARATE 160/4.5 mcg INHALER IH SCH ×2 (10:50→21:49)
[2018-05-02] MEDS: TIOTROPIUM BROMIDE 2.5 MCG (SPIRIVA) RESPIMAT INHALER IH SCH (10:51)
[2018-05-02 12:48] LABS: INR 1.51 (0.83-1.09); PROTHROMBIN TIME (PATIENT) 17.9 SEC (9.7-13.0)
--- NOTE | 2018-05-02 15:36 | PN ---
[facility] Progress Note Note: Abnormal Lab Results 05/02/18 11:00 PT with INR 17.90 H INR 1.51 H Coumadin adjusted to 5mg today and tomorrow evening. Repeat PT/INR 05/04/18. Continue to monitor clinically.
[2018-05-02] MEDS: WARFARIN NA 5 MG TABLET (UD) PO SCH (18:13)
[2018-05-02] MEDS: DIGOXIN 0.125 MG TABLET (FP) PO SCH (21:49)
[2018-05-02] MEDS: MIRTAZAPINE 30 MG TABLET (FP) PO SCH (21:49)
[2018-05-02] MEDS: THIAMINE HCL 100 MG TABLET (FP) PO SCH (21:49)
[2018-05-02] MEDS: MELATONIN 5 MG TABLETS PO PRN (21:50)
[2018-05-02] MEDS: QUEtiapine FUMARATE 300 MG TABLET PO SCH (21:50)
[2018-05-02] MEDS: ACETAMINOPHEN 325 MG TABLET (FP) PO PRN (21:51)
[2018-05-03] MEDS: GABAPENTIN 400 MG CAPSULE (FP) PO SCH ×3 (06:02→21:36)
--- NOTE | 2018-05-03 10:38 | PN ---
S Progress Note (SOAP) Subjective: Patient with elevated BP; denies headache, other s/s of elevated BP. Hx of heart disease, on multiple BP medications: digoxin, cardizem, norvasc, losartan. States that his Cardizem was increased to 300mg and taht he takes all his medications before sleep. Objective: neurologically intact, Heart rate regular, S1S2 audible. 05/03/18 12:32 Assessment: 05/03/18 12:33 Hypertensive Plan: Cardizem increased to 300mg at bedtime. Will continue to monitor.
[2018-05-03] MEDS: LISINOPRIL 20 MG TABLET (FP) PO SCH (10:39)
[2018-05-03] MEDS: predniSONE 10 MG TABLET (UD) PO SCH (10:39)
[2018-05-03] MEDS: PANTOPRAZOLE 40 MG TABLET (FP) PO SCH (10:39)
[2018-05-03] MEDS: PRENATAL VITAMINS W/ FOLIC ACID TABLET (FP) PO SCH (10:39)
[2018-05-03] MEDS: NICOTINE 14 MG/24 HOURS TOPICAL PATCH TD SCH (10:39)
[2018-05-03] MEDS: METHOTREXATE 2.5 MG PO SCH (10:39)
[2018-05-03] MEDS: TIOTROPIUM BROMIDE 2.5 MCG (SPIRIVA) RESPIMAT INHALER IH SCH (10:42)
[2018-05-03] MEDS: BUDESONIDE/FORMETEROL FUMARATE 160/4.5 mcg INHALER IH SCH ×2 (10:42→22:02)
[2018-05-03] MEDS: WARFARIN NA 5 MG TABLET (UD) PO SCH (17:10)
[2018-05-03] MEDS: THIAMINE HCL 100 MG TABLET (FP) PO SCH (21:35)
[2018-05-03] MEDS: QUEtiapine FUMARATE 300 MG TABLET PO SCH (21:36)
[2018-05-03] MEDS: DIGOXIN 0.125 MG TABLET (FP) PO SCH (21:36)
[2018-05-03] MEDS: MIRTAZAPINE 30 MG TABLET (FP) PO SCH (21:37)
[2018-05-03] MEDS: ACETAMINOPHEN 325 MG TABLET (FP) PO PRN (21:37)
[2018-05-03] MEDS ORDERED: PT OWN MED DRAWER 7, Y5N ONE ×2 (21:44→22:03)
[2018-05-04] MEDS: GABAPENTIN 400 MG CAPSULE (FP) PO SCH ×3 (06:04→22:50)
[2018-05-04] MEDS: LISINOPRIL 20 MG TABLET (FP) PO SCH (10:42)
[2018-05-04] MEDS: PANTOPRAZOLE 40 MG TABLET (FP) PO SCH (10:42)
[2018-05-04] MEDS: PRENATAL VITAMINS W/ FOLIC ACID TABLET (FP) PO SCH (10:42)
[2018-05-04] MEDS: predniSONE 10 MG TABLET (UD) PO SCH (10:42)
[2018-05-04] MEDS: NICOTINE 14 MG/24 HOURS TOPICAL PATCH TD SCH (10:42)
[2018-05-04] MEDS: BUDESONIDE/FORMETEROL FUMARATE 160/4.5 mcg INHALER IH SCH ×2 (10:44→21:05)
[2018-05-04] MEDS: TIOTROPIUM BROMIDE 2.5 MCG (SPIRIVA) RESPIMAT INHALER IH SCH (10:44)
[2018-05-04] MEDS ORDERED: ACETAMINOPHEN 500 MG TABLET (FP) PO PRN (11:09)
[2018-05-04] MEDS ORDERED: PT OWN MED DRAWER 7, Y5N ONE (19:32)
[2018-05-04] MEDS: DIGOXIN 0.125 MG TABLET (FP) PO SCH (21:04)
[2018-05-04] MEDS: THIAMINE HCL 100 MG TABLET (FP) PO SCH (21:05)
[2018-05-04] MEDS: MIRTAZAPINE 30 MG TABLET (FP) PO SCH (21:05)
[2018-05-04] MEDS ORDERED: cloNIDine HCL 0.1 MG TABLET PO ONE (22:26)
--- NOTE | 2018-05-04 22:29 | PN ---
S Progress Note Note: Patient's blood pressure is B/P 184/104. Patient is asymptomatic Vital Signs Temperature 97.1 F L 05/04/18 07:07 Pulse Rate 122 H 05/04/18 22:19 Respiratory Rate 20 05/04/18 22:19 Blood Pressure 184/104 H 05/04/18 22:19 O2 Sat by Pulse Oximetry (%) Action: Clonidine 0.1mg tablet oral ordered
[2018-05-04] MEDS: ACETAMINOPHEN 500 MG TABLET (FP) PO PRN (22:50)
[2018-05-04] MEDS: QUEtiapine FUMARATE 300 MG TABLET PO SCH (22:50)
[2018-05-05] MEDS: GABAPENTIN 400 MG CAPSULE (FP) PO SCH ×3 (06:20→21:46)
[2018-05-05] MEDS: ACETAMINOPHEN 500 MG TABLET (FP) PO PRN ×2 (06:21→21:47)
[2018-05-05] MEDS ORDERED: PT OWN MED DRAWER 7, Y5N ONE ×3 (08:15→19:15)
[2018-05-05] MEDS: predniSONE 10 MG TABLET (UD) PO SCH (09:44)
[2018-05-05] MEDS: NICOTINE 14 MG/24 HOURS TOPICAL PATCH TD SCH (09:45)
[2018-05-05] MEDS: PANTOPRAZOLE 40 MG TABLET (FP) PO SCH (09:46)
[2018-05-05] MEDS: PRENATAL VITAMINS W/ FOLIC ACID TABLET (FP) PO SCH (09:46)
[2018-05-05] MEDS: LISINOPRIL 20 MG TABLET (FP) PO SCH (09:46)
[2018-05-05] MEDS: TIOTROPIUM BROMIDE 2.5 MCG (SPIRIVA) RESPIMAT INHALER IH SCH (09:47)
[2018-05-05] MEDS: BUDESONIDE/FORMETEROL FUMARATE 160/4.5 mcg INHALER IH SCH ×2 (09:47→21:48)
[2018-05-05] MEDS: METHOTREXATE 2.5 MG PO SCH (09:48)
--- NOTE | 2018-05-05 10:42 | PN ---
[facility] Progress Note (SOAP) Subjective: Elevated BP at night time. Patient states he felt dizzy and light headed when his BP was elevated. Cardizem increased to 300mg qhs two days ago. Received clonidine 0.1mg last night and BP reduced. Objective: 05/05/18 10:40 Asymptomatic, heart rate regular, lungs clear. Vital Signs - 24 hr 05/04/18 05/04/18 05/04/18 20:56 21:04 22:19 Temperature Pulse Rate 110 H 110 H 122 H Respiratory 20 20 Rate Blood Pressure 160/99 184/104 H 05/05/18 05/05/18 07:00 09:30 Temperature 97.5 F L Pulse Rate 71 61 Respiratory 18 18 Rate Blood Pressure 124/84 126/83 Assessment: 05/05/18 10:41 Hypertension Plan: Clonidine has a serious interaction with beta blockers and cannot be ordered as a standing dose. Discussion with PCP's nurse- Anthony White, PCP Dr. Ortega, and baseball scout Dr. Valentine, increasing Toprol XL 200mg to twice a day was recommended. The baseball scout and PCP believe that the night time spikes in BP may be related to the stress of rehab. This recommendation was discussed with the patient, the pharmacist (Mr. Yang), and the nurse. The patient was strongly encouraged to see his PCP and baseball scout upon discharge from the hospital.
[2018-05-05 12:25] LABS: INR 1.84 (0.83-1.09); PROTHROMBIN TIME (PATIENT) 21.9 SEC (9.7-13.0)
--- NOTE | 2018-05-05 15:18 | PN ---
[facility] Progress Note Note: INR is not therapeutic; Warfarin 5 mg x 2 days given, repeat INR on May 07. Laboratory 05/02/18 05/05/18 11:00 09:50 PT with INR 17.90 SEC H SEC 21.90 SEC H SEC (9.7-13.0) (9.7-13.0) INR 1.51 H 1.84 H (0.83-1.09) (0.83-1.09)
[2018-05-05] MEDS: WARFARIN NA 5 MG TABLET (UD) PO SCH (17:37)
[2018-05-05] MEDS: THIAMINE HCL 100 MG TABLET (FP) PO SCH (21:44)
[2018-05-05] MEDS: MELATONIN 5 MG TABLETS PO PRN (21:44)
[2018-05-05] MEDS: QUEtiapine FUMARATE 300 MG TABLET PO SCH (21:46)
[2018-05-05] MEDS: DIGOXIN 0.125 MG TABLET (FP) PO SCH (21:46)
[2018-05-05] MEDS: MIRTAZAPINE 30 MG TABLET (FP) PO SCH (21:46)
[2018-05-05] MEDS ORDERED: cloNIDine HCL 0.1 MG TABLET PO SCH (22:00)
[2018-05-06] MEDS: GABAPENTIN 400 MG CAPSULE (FP) PO SCH ×3 (06:11→22:08)
[2018-05-06] MEDS: LISINOPRIL 20 MG TABLET (FP) PO SCH (10:01)
[2018-05-06] MEDS: PANTOPRAZOLE 40 MG TABLET (FP) PO SCH (10:01)
[2018-05-06] MEDS: predniSONE 10 MG TABLET (UD) PO SCH (10:01)
[2018-05-06] MEDS: NICOTINE 14 MG/24 HOURS TOPICAL PATCH TD SCH (10:02)
[2018-05-06] MEDS: PRENATAL VITAMINS W/ FOLIC ACID TABLET (FP) PO SCH (10:02)
[2018-05-06] MEDS ORDERED: PT OWN MED DRAWER 7, Y5N ONE (10:06)
[2018-05-06] MEDS: BUDESONIDE/FORMETEROL FUMARATE 160/4.5 mcg INHALER IH SCH ×2 (10:07→22:06)
[2018-05-06] MEDS: TIOTROPIUM BROMIDE 2.5 MCG (SPIRIVA) RESPIMAT INHALER IH SCH (10:07)
--- NOTE | 2018-05-06 10:33 | PN ---
S Progress Note Note: PATIENT C/O GENERALIZED PAIN WITH DUE TO RHEUMATOID ARTHRITIS. PATIENT REPORTS BEING PRESCRIBED NAPROSYN BY PCP, HOWEVER DUE TO PMH OF AFIB AND COUMADIN USE, WILL CONTINUE WITH APAP PRN BUT WILL CHANGE CURRENT DOSING FROM Q12H TO Q8H. CONTINUE TO MONITOR CLINICALLY. Vital Signs Temperature 97.2 F L 05/06/18 06:30 Pulse Rate 63 05/06/18 06:30 Respiratory Rate 18 05/06/18 06:30 Blood Pressure 131/86 05/06/18 06:30 O2 Sat by Pulse Oximetry (%)
[2018-05-06] MEDS: ACETAMINOPHEN 500 MG TABLET (FP) PO PRN ×2 (14:08→22:07)
[2018-05-06] MEDS: WARFARIN NA 5 MG TABLET (UD) PO SCH (17:03)
[2018-05-06] MEDS: DIGOXIN 0.125 MG TABLET (FP) PO SCH (22:07)
[2018-05-06] MEDS: MIRTAZAPINE 30 MG TABLET (FP) PO SCH (22:08)
[2018-05-06] MEDS: MELATONIN 5 MG TABLETS PO PRN (22:08)
[2018-05-06] MEDS: QUEtiapine FUMARATE 300 MG TABLET PO SCH (22:08)
[2018-05-06] MEDS: THIAMINE HCL 100 MG TABLET (FP) PO SCH (22:09)
[2018-05-07] MEDS: GABAPENTIN 400 MG CAPSULE (FP) PO SCH ×3 (06:43→21:50)
[2018-05-07] MEDS ORDERED: PT OWN MED DRAWER 7, Y5N ONE ×3 (08:35→19:40)
[2018-05-07] MEDS: NICOTINE 14 MG/24 HOURS TOPICAL PATCH TD SCH (10:22)
[2018-05-07] MEDS: PRENATAL VITAMINS W/ FOLIC ACID TABLET (FP) PO SCH (10:22)
[2018-05-07] MEDS: LISINOPRIL 20 MG TABLET (FP) PO SCH (10:22)
[2018-05-07] MEDS: predniSONE 10 MG TABLET (UD) PO SCH (10:23)
[2018-05-07] MEDS: PANTOPRAZOLE 40 MG TABLET (FP) PO SCH (10:23)
[2018-05-07] MEDS: METHOTREXATE 2.5 MG PO SCH (10:24)
[2018-05-07] MEDS: BUDESONIDE/FORMETEROL FUMARATE 160/4.5 mcg INHALER IH SCH ×2 (10:25→21:48)
[2018-05-07] MEDS: TIOTROPIUM BROMIDE 2.5 MCG (SPIRIVA) RESPIMAT INHALER IH SCH (10:25)
[2018-05-07 11:37] LABS: INR 2.28 (0.83-1.09); PROTHROMBIN TIME (PATIENT) 27.1 SEC (9.7-13.0)
[2018-05-07] MEDS: ACETAMINOPHEN 500 MG TABLET (FP) PO PRN ×2 (12:09→21:49)
[2018-05-07] MEDS: MELATONIN 5 MG TABLETS PO PRN (21:49)
[2018-05-07] MEDS: THIAMINE HCL 100 MG TABLET (FP) PO SCH (21:49)
[2018-05-07] MEDS: QUEtiapine FUMARATE 300 MG TABLET PO SCH (21:50)
[2018-05-07] MEDS: MIRTAZAPINE 30 MG TABLET (FP) PO SCH (21:50)
[2018-05-07] MEDS: DIGOXIN 0.125 MG TABLET (FP) PO SCH (21:50)
[2018-05-08] MEDS: ACETAMINOPHEN 500 MG TABLET (FP) PO PRN ×2 (06:16→21:05)
[2018-05-08] MEDS: GABAPENTIN 400 MG CAPSULE (FP) PO SCH ×3 (06:16→21:06)
[2018-05-08] MEDS ORDERED: PT OWN MED DRAWER 7, Y5N ONE ×3 (09:06→19:44)
[2018-05-08] MEDS: predniSONE 10 MG TABLET (UD) PO SCH (10:33)
[2018-05-08] MEDS: PANTOPRAZOLE 40 MG TABLET (FP) PO SCH (10:33)
[2018-05-08] MEDS: PRENATAL VITAMINS W/ FOLIC ACID TABLET (FP) PO SCH (10:33)
[2018-05-08] MEDS: NICOTINE 14 MG/24 HOURS TOPICAL PATCH TD SCH (10:33)
[2018-05-08] MEDS: LISINOPRIL 20 MG TABLET (FP) PO SCH (10:33)
[2018-05-08] MEDS: TIOTROPIUM BROMIDE 2.5 MCG (SPIRIVA) RESPIMAT INHALER IH SCH (10:34)
[2018-05-08] MEDS: BUDESONIDE/FORMETEROL FUMARATE 160/4.5 mcg INHALER IH SCH ×2 (10:34→21:05)
[2018-05-08 12:47] LABS: INR 2.89 (0.83-1.09); PROTHROMBIN TIME (PATIENT) 34.5 SEC (9.7-13.0)
--- NOTE | 2018-05-08 16:09 | PN ---
[facility] Progress Note Note: inr 2.89 on coumadin 5 mgs po daily,repeat inr in am
[2018-05-08] MEDS ORDERED: WARFARIN NA 5 MG TABLET (UD) PO SCH (18:00)
[2018-05-08] MEDS: DIGOXIN 0.125 MG TABLET (FP) PO SCH (21:06)
[2018-05-08] MEDS: MELATONIN 5 MG TABLETS PO PRN (21:06)
[2018-05-08] MEDS: MIRTAZAPINE 30 MG TABLET (FP) PO SCH (21:06)
[2018-05-08] MEDS: QUEtiapine FUMARATE 300 MG TABLET PO SCH (21:06)
[2018-05-08] MEDS: THIAMINE HCL 100 MG TABLET (FP) PO SCH (21:08)
[2018-05-09 06:37] VITALS: TEMP 97.1
[2018-05-09 06:38] VITALS: BP 152/104; PULSE 85
[2018-05-09] MEDS ORDERED: cloNIDine HCL 0.1 MG TABLET PO ONE (06:43)
--- NOTE | 2018-05-09 06:47 | PN ---
[facility] Progress Note Note: Patient's blood pressure this morning was B/P 173/98 and 152/104 respectively Vital Signs 05/09/18 05/09/18 06:00 06:05 Temperature 97.1 F L Pulse Rate 80 85 Respiratory 18 18 Rate Blood Pressure 173/98 H 152/104 H Action: Clonidine 0.1mg tablet 1 tablet oral ordered
[2018-05-09] MEDS: GABAPENTIN 400 MG CAPSULE (FP) PO SCH (07:01)
--- NOTE | 2018-05-09 08:15 | PN ---
[facility] Progress Note Note: Patient is scheduled for discharged today. Scripts for 30 days supply of medications(Seroquel, Remeron) are electronically transmitted to [facility] at [address] [place] [address]
[2018-05-09] MEDS ORDERED: PT OWN MED DRAWER 7, Y5N ONE (08:21)
--- NOTE | 2018-05-09 10:20 | PN ---
[facility] Progress Note Note: REHAB DISCHARGE NOTE: PATIENT COMPLETED REHAB TODAY AND REPORTS ACCOMPLISHING ALL REHAB GOALS. PATIENT MEDICALLY STABLE AND DENIES SI/HI. AFTERCARE TO BE DONE AT [facility] IN [place]. PATIENT ENCOURAGED TO ATTEND GROUP MEETINGS/ AFTERCARE TO PREVENT RELAPSE AND TO FOLLOW UP WITH PCP FOR ONGOING MEDICAL MANAGEMENT WITHIN 72 HOURS OF DISCHARGE. PATIENT HAS MEDICATIONS IN BELONGINGS BUT NEEDS REFILL OF GABAPENTIN AND METOPROLOL 200MG HS (PATIENT REFUSING TO TAKE IT BID HE STATES IT MAKES HIM SLEEPY AND TIRED) UNTIL HE CAN FOLLOW UP WITH PCP. PATIENT PRESCRIPTIONS SENT TO PREFERRED PHARMACY ALTHOUGH HE REFUSED [facility]. DISCHARGED INSTRUCTIONS PROVIDED BY NURSING STAFF AND PATIENT LEFT UNIT IN STABLE CONDITION. Vital Signs Temperature 97.1 F L 05/09/18 06:00 Pulse Rate 85 05/09/18 06:05 Respiratory Rate 18 05/09/18 06:05 Blood Pressure 152/104 H 05/09/18 06:05 O2 Sat by Pulse Oximetry (%) Ambulatory Orders Warfarin Sodium [Coumadin] 3 mg PO Q2D 08/20/16 Digoxin [Lanoxin -] 0.125 mg PO HS #30 tab 09/02/16 Pantoprazole Sodium [Protonix -] 40 mg PO DAILY #30 tab 09/02/16 Quetiapine Fumarate [Seroquel -] 300 mg PO HS #30 tablet 09/02/16 Budesonide/Formeterol Fumarate [SYMBICORT 160/4.5mcg -] 2 puff PO BID 04/20/18 Diltiazem HCl [Diltiazem 24Hr ER] 240 mg PO HS 04/20/18 Lisinopril [Prinivil] 40 mg PO DAILY 04/20/18 Methotrexate [Mexate -] 1 tablet PO Q2D 04/20/18 Prednisone 10 mg PO DAILY 04/20/18 Warfarin Na [Coumadin -] 5 mg PO Q2D 04/20/18 Tiotropium Polo [Spiriva] 2 inh PO DAILY 04/25/18 Gabapentin [Neurontin -] 300 mg PO TID #30 capsule 05/09/18 Metoprolol Succinate [Toprol Xl] 200 mg PO HS #14 tab.er.24h 05/09/18 Mirtazapine [Remeron -] 30 mg PO HS #30 tablet 05/09/18 Quetiapine Fumarate [Seroquel -] 300 mg PO HS #30 tablet 05/09/18
== END 2018-05-09 08:35 | disposition home or self-care (01) | DRG 772 ==
LOC: YASAS 13:17 → Y3W 13:18
PROVIDERS: ADMIT Neuromusculoskeletal Medicine & OMM; ATTEND Neuromusculoskeletal Medicine & OMM
PROC: HZ42ZZZ Group Counseling for Substance Abuse Treatment, Cognitive-Behavioral (ICD-10-PCS; principal; 2018-04-24)
DX: F11.20 Opioid dependence, uncomplicated (principal); F14.20 Cocaine dependence, uncomplicated; F19.280 Other psychoactive substance dependence with psychoactive substance-induced anxiety disorder; F19.282 Other psychoactive substance dependence with psychoactive substance-induced sleep disorder; F17.210 Nicotine dependence, cigarettes, uncomplicated; F33.1 Major depressive disorder, recurrent, moderate; I48.91 Unspecified atrial fibrillation; Z79.01 Long term (current) use of anticoagulants; I10 Essential (primary) hypertension; K21.9 Gastro-esophageal reflux disease without esophagitis; G62.9 Polyneuropathy, unspecified; Z95.810 Presence of automatic (implantable) cardiac defibrillator
CPT/HCPCS: 36415; 80162; 85610; 93005; 93010; J0735; J8610

== ENCOUNTER 2018-04-24 21:51 | Emergency (ER) | payer OTHER ==
[2018-04-24 22:04] VITALS: TEMP 98.6; BMI 26.4
--- NOTE | 2018-04-24 22:22 | PDOC ---
Attending Attestation - HPI HPI: 04/24/18 23:09 The patient is a 62 year old male, with a significant past medical history of polysubstance abuse (cocaine and heroin), asthma, GERD, COPD, HLD, HTN, Afib ( on Coumadin s/p pacemaker/defibrillator 12/2015), who presents to the emergency department via EMS from [facility] detox/rehab with, abnormal high pitched noises" coming from his pacemaker/defibrillator. He denies any recent fevers, chills, headache or dizziness. He denies any recent nausea, vomit, diarrhea or constipation. He denies any recent chest pain or shortness of breath. He denies any recent dysuria, frequency, urgency or hematuria. Allergies: Chlorpromazine HCl. Past surgical history: pacemaker/defibrillator 12/2015 Social History: Smoker. Cocaine. Heroin. Primary Care Physician: Dr. Daniel Ortega Jai Alai Player: Dr. Aguilar Sainz <Bethany Overton - Last Filed: 04/24/18 23:09> - Resident Resident Name: Ovidio Jane - ED Attending Attestation I have performed the following: I have examined & evaluated the patient, The case was reviewed & discussed with the resident, I agree w/resident's findings & plan, Exceptions are as noted - Physicial Exam PE: GENERAL: Awake, alert, and fully oriented, in no acute distress HEAD: No signs of trauma EYES: PERRLA, EOMI, sclera anicteric, conjunctiva clear ENT: Auricles normal inspection, hearing grossly normal, nares patent, oropharynx clear without exudates. Moist mucosa NECK: Normal ROM, supple, no lymphadenopathy, JVD, or masses LUNGS: Breath sounds equal, clear to auscultation bilaterally. No wheezes, and no crackles HEART: Tachycardic, irregular, normal S1 and S2, no murmurs, rubs or gallops ABDOMEN: Soft, nontender, normoactive bowel sounds. No guarding, no rebound. No masses EXTREMITIES: Normal range of motion, no edema. No clubbing or cyanosis. No cords, erythema, or tenderness NEUROLOGICAL: Cranial nerves II through XII grossly intact. Normal speech, normal gait. Motor and sensation intact SKIN: Warm, Dry, normal turgor, no rashes or lesions noted. - Medical Decision Making Device was interrogated by [employer] rep at bedside. Questionable low impedance alarm from 3 days ago, but no current alarms. Patient has had 3 total shocks delivered since the device was placed in 2016, however, it was never evaluated. Counseled him that he needs to follow up with his client technical support associate to review the findings. Clinic is on Wednesday. Discussed with [facility]. <Claudia Malloy - Last Filed: 04/25/18 00:11> Attestations - Attestations 04/24/18 23:10 Documentation prepared by Bethany Overton, acting as medical sales representative for Claudia Malloy MD <Bethany Overton - Last Filed: 04/24/18 23:09>
--- NOTE | 2018-04-24 22:27 | PDOC ---
History of Present Illness - General Chief Complaint: Irregular Heart Beat Stated Complaint: PACEMAKER PROBLEMS Time Seen by Provider: 04/24/18 22:04 - History of Present Illness Initial Comments: 04/24/18 22:22 62 yo M with A-fib ( on Coumadin) HTN, HLD, COPD, Defibrillator placement ( 2015), opioid dependence undergoing rehab for opioid dependence BIBA for defibrillator malfunction. Patient Reports several days of opioid malfunction, making "weird high pitched noises." Last time he reports that defibrillator made high pitched ring noise was 8:30 PM. Patient asymptomatic. Endorses longstanding intermittent lightheadedness when standing. Initial defibrillator placement 2009, but d/t frequent shocks delivered, new device was placed 2015. School Photographer Dr. Gage Michelle x 6 months ago reported Echo ( EF 60%) at that visit. Last saw Dr. Gage almanzar. at that time patient reports nml EKG. Denies shock o f device. Patient denies POWER, vision change, palpitations, cough, wheezing, orthopena, PND , leg swelling/pain, N/V, F,C, CP, SOB, urinary complaints, hematuria, BPR, abdominal pain, diarrhea, constipation, weakness, sensory changes. PMHx: as noted above ROS: as noted Allergies: chlorpromazine PMD: Dr. Shannon Sanchez School Photographer: Dr. Almonte Past History - Past Medical History Allergies/Adverse Reactions: Allergies Allergy/AdvReac Type Severity Reaction Status Date / Time chlorpromazine HCl Allergy Severe Rash Verified 04/24/18 22:03 [From Thorazine] Home Medications: Ambulatory Orders Warfarin Sodium [Coumadin] 3 mg PO DAILY 08/20/16 Digoxin [Lanoxin -] 0.125 mg PO HS #30 tab 09/02/16 Mirtazapine [Remeron -] 30 mg PO HS #30 tablet 09/02/16 Pantoprazole Sodium [Protonix -] 40 mg PO DAILY #30 tab 09/02/16 Quetiapine Fumarate [Seroquel -] 300 mg PO HS #30 tablet 09/02/16 Budesonide/Formeterol Fumarate [SYMBICORT 160/4.5mcg -] 1 inh PO BID 04/20/18 Diltiazem HCl [Diltiazem 24Hr ER] 240 mg PO HS 04/20/18 Gabapentin [Neurontin -] 300 mg PO TID 04/20/18 Lisinopril [Prinivil] 40 mg PO DAILY 04/20/18 Methotrexate [Mexate -] 1 tablet PO Q2D 04/20/18 Metoprolol Succinate [Toprol Xl] 200 mg PO HS 04/20/18 Prednisone 10 mg PO DAILY 04/20/18 Warfarin Na [Coumadin -] 5 mg PO DAILY@1800 04/20/18 Anemia: No Asthma: No Cancer: No Cardiac Disorders: Yes CVA: No COPD: Yes CHF: No Dementia: No Diabetes: No GI Disorders: Yes Disorders: No HTN: Yes Hypercholesterolemia: Yes Kidney Stones: No Liver Disease: No Seizures: No Thyroid Disease: No - Surgical History Abdominal Surgery: Yes (B/L abdominal hernia age 4) Appendectomy: No Cardiac Surgery: Yes (2009 defibrillator then again a pacemaker & defib 12/25) Cholecystectomy: No Lung Surgery: No Neurologic Surgery: No Orthopedic Surgery: No - Reproductive History Testicular Surgery: No - Suicide/Smoking/Psychosocial Hx Smoking History: Unknown if ever smoked Have you smoked in the past 12 months: No Number of Cigarettes Smoked Daily: 10 Information on smoking cessation initiated: No 'Breaking Loose' booklet given: 04/20/18 Hx Alcohol Use: No Drug/Substance Use Hx: No Substance Use Type: Heroin Hx Substance Use Treatment: No Review of Systems - Review of Systems Comments:: 04/24/18 22:26 GENERAL/CONSTITUTIONAL: No fever or chills. No weakness. HEAD, EYES, EARS, NOSE AND THROAT: No change in vision. No ear pain or discharge. No sore throat. CARDIOVASCULAR: No chest pain or shortness of breath RESPIRATORY: No cough, wheezing, or hemoptysis. GASTROINTESTINAL: No nausea, vomiting, diarrhea or constipation. GENITOURINARY: No dysuria, frequency, or change in urination. MUSCULOSKELETAL: No joint or muscle swelling or pain. No neck or back pain. SKIN: No rash NEUROLOGIC: No headache, vertigo, loss of consciousness, or change in strength/ sensation. ENDOCRINE: No increased thirst. No abnormal weight change HEMATOLOGIC/LYMPHATIC: No anemia, easy bleeding, or history of blood clots. ALLERGIC/IMMUNOLOGIC: No hives or skin allergy. *Physical Exam - Vital Signs Last Vital Signs Temp Pulse Resp BP Pulse Ox 98.6 F 105 H 18 170/101 H 95 04/24/18 22:03 04/24/18 22:03 04/24/18 22:03 04/24/18 22:03 04/24/18 22:03 - Physical Exam Comments: 04/24/18 22:26 GENERAL: Awake, alert, and fully oriented, in no acute distress HEAD: No signs of trauma, normocephalic, atraumatic EYES: PERRLA, EOMI, sclera anicteric, conjunctiva clear ENT: Auricles normal inspection, hearing grossly normal, nares patent, oropharynx clear without exudates. Moist mucosa NECK: Normal ROM, supple, no lymphadenopathy, JVD, or masses LUNGS: No distress, speaks full sentences, clear to auscultation bilaterally HEART: Regular rate and rhythm, normal S1 and S2, no murmurs, rubs or gallops, peripheral pulses normal and equal bilaterally. ABDOMEN: Soft, nontender, normoactive bowel sounds. No guarding, no rebound. No masses EXTREMITIES : Normal inspection, Normal range of motion, no edema. No clubbing or cyanosis. NEUROLOGICAL: Cranial nerves II through XII grossly intact. Normal speech, normal gait, no focal sensorimotor deficits SKIN: Warm, Dry, normal turgor, no rashes or lesions noted Moderate Sedation - Procedure Monitoring Vital Signs: Procedure Monitoring Vital Signs Temperature 98.6 F 04/24/18 22:03 Pulse Rate 105 H 04/24/18 22:03 Respiratory Rate 18 04/24/18 22:03 Blood Pressure 170/101 H 04/24/18 22:03 O2 Sat by Pulse Oximetry (%) 95 04/24/18 22:03 Medical Decision Making - Medical Decision Making 04/24/18 22:25 62 yo M with A-fib ( on Coumadin) HTN, HLD, COPD, Defibrillator placement ( 2015), opioid dependence undergoing rehab for opioid dependence BIBA for defibrillator malfunction. Denies shocks delivered. BP 170/101, HR 105, RR 18, Temp 98.6, O2 95%, A&Ox3. Physical exam unremarkable. Will evaluate patient for cardiac dysarrythmias. Plan to call manufacture to interrogate cardiac device for potential malfunction of defibrillator. Ed Course: 04/24/18 22:31 [employer] contacted at [phone]. [employer] Registration Specialist contacted.Rep to report incident to local [place], [place] ophthalmic technician apprentice. Awaiting call and visit to ED. 04/24/18 22:39 Cardiac Rehab Nurse reports possible battery or alarm malfunction. States that he will be present in ED within one hour. 04/24/18 23:31 [employer] ophthalmic technician apprentice arrived 04/24/18 23:46 Per ophthalmic technician apprentice patient with 03/2018 with 2 delivered shocks for sustained VT. Low impedance noted (04-21-18), check within 1 week, should f/u with Dr. Sainz (04-27-18). Unlikely lead revision. Per BELT LOOP MAKER Britt patient has received evening medications. *DC/Admit/Observation/Transfer Diagnosis at time of Disposition: Cardiac defibrillator in place - Discharge Dispostion Disposition: TRANSFER ACUTE CARE/OTHER HOSP Condition at time of disposition: Stable Decision to Admit order: No - Referrals Referrals: Daniel Ortega [Primary Care Provider] - - Patient Instructions Printed Discharge Instructions: DI for Automatic Cardioverter/Defibrillator Implantation, DI for Arrhythmias Additional Instructions: Please return to the emergency department with any new or worsening symptoms or concerns. Please follow up with your primary care physician within 72 hours. Per ophthalmic technician apprentice patient with with 2 delivered shocks for sustained VT (03/2018). Low impedance noted (04-21-18), recheck device within 1 week, should f/u with Dr. Sainz (04-27-18). Please follow up with Cardiology/Dr. Sainz in clinic this Wednesday (04-27-18). - Post Discharge Activity - Attestations Physician Attestion: 04/24/18 22:46 I attest to the information provided in this note.
[2018-04-24 23:16] VITALS: BP 152/108; PULSE 118
== END 2018-04-25 01:24 | disposition short-term general hospital (02) ==
LOC: JER 21:51
DX: T82.897A Other specified complication of cardiac prosthetic devices, implants and grafts, initial encounter (principal); Z95.810 Presence of automatic (implantable) cardiac defibrillator; I48.91 Unspecified atrial fibrillation; Z79.01 Long term (current) use of anticoagulants; I10 Essential (primary) hypertension; E78.5 Hyperlipidemia, unspecified; J44.9 Chronic obstructive pulmonary disease, unspecified; F11.20 Opioid dependence, uncomplicated
CPT/HCPCS: 99282-25